=== PATIENT | male | born 1955 | race Hispanic/Latino ===

== ENCOUNTER 2019-05-01 12:00 | Emergency (ER) | payer MEDICARE, SELFPAY ==
[2019-05-01] VITALS (11 sets, daily range): BP systolic 124–173; BP diastolic 64–83; PULSE 61–78; RESP 11–21; TEMP 36.7; O2SAT 94–100; BMI 25.7
--- NOTE | 2019-05-01 13:07 | PC.NURSE ---
pt explains he passed out 3 times, woke on the floor 3 different times this am, then drove himself here. btoner
--- NOTE | 2019-05-01 13:59 | ED.SYNCOPE ---
HPI - Syncope General Chief Complaint: Chest Pain Stated Complaint: states 3 syncopal episodes,chest bothering him Time Seen by Provider: 05/01/19 13:42 Source: patient Mode of arrival: Ambulatory Limitations: no limitations History of Present Illness HPI narrative: The patient is a 63-year-old male who presents to the emergency department with chest pain after multiple episodes of syncope. At 2:00 a.m. in the morning the patient felt nauseated cannot of bed went to the bathroom passed out and woke up on the floor. He does not know how long he was out. The patient states that he went back to his bed and passed out again and woke up on the floor. This morning he was sitting on the toilet and passed out a 3rd time. He denies falling off the toilet at that time he woke up sitting on the toilet. He then developed chest pain which radiated into his right neck . He denies any radiation to his neck or his back. He has had no jaw pain. He has felt short of breath in air hungry as well as having palpitations. He has been dizzy and lightheaded. He denies being a diabetic but admits to history of hypertension and a previous myocardial infarction. He tells me that he has had [address] Elder a fusion juncture grinder says that he has had a stent in his LAD in the past. The patient continues to smoke cigarettes but does not drink alcohol. He denies any headache at this time. He has had mild shortness of breath without any cough. He has had no significant nausea vomiting diarrhea. His bowel movements have been normal without melena or hematochezia. He denies any urinary symptoms. Related Data Home Medications Medication Instructions Recorded Confirmed aspirin 325 mg PO QPM 05/01/19 05/01/19 carvedilol 6.25 mg PO BID 05/01/19 05/01/19 cholecalciferol (vitamin D3) 2,000 unit PO QPM 05/01/19 05/01/19 dicyclomine 10 mg PO QID PRN 05/01/19 05/01/19 duloxetine 20 mg PO QPM 05/01/19 05/01/19 erythromycin 250 mg PO QID PRN 05/01/19 05/01/19 gabapentin 400 mg PO TID 05/01/19 05/01/19 isosorbide mononitrate 30 mg PO QPM 05/01/19 05/01/19 levothyroxine 125 mcg PO QPM 05/01/19 05/01/19 lisinopril 5 mg PO QPM 05/01/19 05/01/19 metformin 500 mg PO BID 05/01/19 05/01/19 mupirocin 1 applic TOPICAL BID PRN 05/01/19 05/01/19 nitroglycerin 0.4 mg SUBLINGUAL Q5-15M PRN 05/01/19 05/01/19 pantoprazole 40 mg PO QPM 05/01/19 05/01/19 vitamin B complex [B-Complex] 1 tab PO QPM 05/01/19 05/01/19 Allergies Allergy/AdvReac Type Severity Reaction Status Date / Time gemfibrozil Allergy Verified 05/01/19 12:21 Review of Systems Review of Systems Narrative: All review of systems were negative except for those mentioned in the history of present illness. Patient History Social History Smoking Status: Current some day smoker Smoking Status: Current some day smoker alcohol intake frequency: holidays/special occasions only Substance Use Type: does not use Exam Narrative Exam Narrative: PHYSICAL EXAM: CONSTITUTIONAL: Awake, Alert, Oriented, Coherent, Cooperative in NAD. Does not appear toxic or ill. HEAD: AT/NC EENT: PERRL, FROM of eyes, no discharge, Oral mucosa is moist and pink, posterior pharynx is without erythema or exudate. The patient is edentulous NECK: Supple, no obvious JVD, Trachea is midline without stridor, . SPINE: No gross deformity, no palpable tenderness of the cervical, thoracic, lumbar or sacral spine. No CVA tenderness. THORAX: No deformity, retractions, chest wall tenderness, subcutaneous air or crepitice. LUNGS: Clear with symmetrical breath sounds without respiratory distress HEART: Normal heart tones, regular rhythm and rate without murmur. ABDOMEN: Soft, non-tender, normal bowel sounds without guarding, rebound, rigidity or palpable mass EXTREMITIES: No edema, cyanosis, deformity or tenderness. SKIN: No rash, bruising, petechiae or purpura. NEURO: Awake, alert, oriented, conversive, cranial nerves II-XII are symmetrical and normal, moves all 4 extremities and is ambulatory Initial Vital Signs Initial Vital Signs: Vital Signs Temperature 98.1 F 05/01/19 12:21 Pulse Rate 77 05/01/19 12:21 Respiratory Rate 15 05/01/19 12:21 Blood Pressure 143/78 H 05/01/19 12:21 Pulse Oximetry 100 05/01/19 12:21 Course Course Course Narrative: 1631 the patient has had multiple episodes of syncope with continued chest pain. He initially stated that nitropaste 1 in helped his pain for approximately 1 in in then it is came back. The patient will be started on a nitro drip and administered 4 mg of morphine sulfate. I will discuss the patient with his fusion juncture grinder Dr. Kenny at [facility] to arrange an admission for possible unstable angina and syncope. 1815 I discussed the patient with Dr. ELDER from [facility] in [facility] who recommended that the patient does not need immediate catheterization but should be admitted to the hospital for a rule out and a cardiac stress test. He recommends that we call the hospitalist and transfer him to [facility] in billing him. I discussed the EKG with Dr. Elder who stated that his EKG is unchanged from before. He was scheduled to have an appointment with their office 2 days ago which she canceled his last appointment was in October of last year. [address] Rosado at [facility] in [facility] who has accepted the patient being transferred to their institution The patient's urine drug screen was positive for marijuana, methamphetamine and Amphetamines Orders Ordered: ED Orders 05/01/19 12:25 Complete Blood Count AUTO DIFF Stat Comprehensive Metabolic Panel Stat Ethanol (ETOH) Stat Lipase Stat Magnesium Stat NT-proBNP (BNP-Adult 18+) Stat Troponin & CK Cardiac Panel Stat 05/01/19 14:00 XR chest 1V Stat 05/01/19 15:50 Urine Drug Screen, Rapid Stat 05/01/19 17:10 Troponin I Stat Discontinued Medications Aspirin (Aspirin Chew) 324 mg PO NOW ONE Stop: 05/01/19 14:03 Last Admin: 05/01/19 14:12 Dose: 324 mg Documented by: BTONER Sodium Chloride (Normal Saline 0.9%) 1,000 mls @ 1,000 mls/hr IV BOLUS ONE Stop: 05/01/19 14:58 Last Infusion: 05/01/19 15:40 Dose: 0 mls/hr Documented by: Admin: 05/01/19 14:11 Dose: 1,000 mls/hr Documented by: CONG Nitroglycerin (Nitroglycerin) 50 mg in 250 mls @ 1.5 mls/hr IV TITRATE SHARAD; Protocol Ketorolac Tromethamine (Toradol) 30 mg IV NOW ONE Stop: 05/01/19 14:03 Last Admin: 05/01/19 14:12 Dose: 30 mg Documented by: CONG Morphine Sulfate (Morphine Sulfate) 4 mg IV NOW ONE Stop: 05/01/19 16:33 Last Admin: 05/01/19 17:41 Dose: Not Given Documented by: ELYSE Morphine Sulfate (Morphine) 4 mg IV NOW ONE Stop: 05/01/19 17:19 Last Admin: 05/01/19 17:22 Dose: 4 mg Documented by: ABDIAS Nitroglycerin (Nitro-Bid) 1 inch TOP NOW ONE Stop: 05/01/19 14:03 Last Admin: 05/01/19 14:12 Dose: 1 inch Documented by: CONG Vital Signs Vital signs: Vital Signs - 8 hr 05/01/19 13:50 05/01/19 14:12 05/01/19 15:08 Pulse Rate 75 66 61 Pulse Rate [Orthostatic Lying] Pulse Rate [Orthostatic Sitting] Pulse Rate [Orthostatic Standing] Respiratory Rate 18 15 Blood Pressure 140/74 Blood Pressure [Left Arm] 148/77 H Blood Pressure [Orthostatic Lying] Blood Pressure [Orthostatic Sitting] Blood Pressure [Orthostatic Standing] Blood Pressure [Right Arm] 124/69 Pulse Oximetry 97 98 05/01/19 16:02 05/01/19 17:52 05/01/19 18:30 Pulse Rate 62 65 Pulse Rate [Orthostatic Lying] 75 Pulse Rate [Orthostatic Sitting] 78 Pulse Rate [Orthostatic Standing] 72 Respiratory Rate 15 14 Blood Pressure Blood Pressure [Left Arm] Blood Pressure [Orthostatic Lying] 128/73 Blood Pressure [Orthostatic Sitting] 148/67 H Blood Pressure [Orthostatic Standing] 137/74 Blood Pressure [Right Arm] 173/83 H 159/75 H Pulse Oximetry 98 98 05/01/19 19:05 05/01/19 19:39 05/01/19 20:07 Pulse Rate 69 76 66 Pulse Rate [Orthostatic Lying] Pulse Rate [Orthostatic Sitting] Pulse Rate [Orthostatic Standing] Respiratory Rate 17 21 12 Blood Pressure Blood Pressure [Left Arm] 135/66 135/66 Blood Pressure [Orthostatic Lying] Blood Pressure [Orthostatic Sitting] Blood Pressure [Orthostatic Standing] Blood Pressure [Right Arm] 138/64 Pulse Oximetry 97 98 97 MDM - Syncope Medical Records Attestation: I reviewed the patient's medical records. Lab Data Attestation: I reviewed the patient's lab results. Result diagrams: 05/01/19 12:25 05/01/19 12:25 Labs: Lab Results 05/01/19 05/01/19 05/01/19 Range/Units 12:25 12:25 12:25 WBC 9.4 (4.5-11.0) X10^3/uL RBC 5.63 (4.5-5.9) X10^6/uL Hgb 16.6 (13.5-17.5) g/dL Hct 48.4 (41-53) % MCV 86.0 (80-100) fL MCH 29.4 (26-34) PG MCHC 34.2 (30-36) % RDW 13.9 (11.6-14.8) % Plt Count 379 (150-400) X10^3/uL Neut % (Auto) 69.0 (50-75) % Lymph % (Auto) 18.4 L (25-40) % [place] % (Auto) 7.0 (3-14) % Eos % (Auto) 4.5 H (2-4) % Baso % (Auto) 1.1 (0-2) % Neut # (Auto) 6500 (6671-9442) /uL Lymph # (Auto) 1700 (7296-3027) /uL [place] # (Auto) 700 (0-900) /uL Eos # (Auto) 400 (0-450) /uL Baso # (Auto) 100 (0-100) /uL Sodium 136 L (137-145) mmol/L Potassium 4.0 (3.4-5.1) mmol/L Chloride 97 L (98-107) mmol/L Carbon Dioxide 29 (22-32) mmol/L BUN 14 (9-20) mg/dL Creatinine 1.20 (0.66-1.25) mg/dL Estimated GFR > 60.0 (>60) mL/min BUN/Creatinine Ratio 11.7 (6-22) Glucose 142 H (80-110) mg/dL Calcium 10.2 (8.4-10.2) mg/dL Magnesium 2.1 (1.6-2.3) mg/dL Total Bilirubin 0.6 (0.2-1.3) mg/dL AST 28 (17-59) IU/L ALT 18 (<50) IU/L Alkaline Phosphatase 83 (38-126) U/L Total Creatine Kinase 96 (55-170) U/L CK-MB (CK-2) TNP CK-MB (CK-2) Rel Index TNP Troponin I < 0.012 (0.01-0.034) ng/mL NT-Pro-B Natriuret Pep 161 H (<125) pg/mL Total Protein 8.0 (6.3-8.2) g/dL Albumin 4.5 (3.5-5.0) g/dL Globulin 3.5 (1.7-4.1) g/dL Albumin/Globulin Ratio 1.3 (1.0-2.8) Lipase 78 (23-300) U/L U Opiates 300ng/mL cut (Negative) Ur Oxycodone Screen (Negative) Urine Methadone Screen (Negative) Ur Barbiturates Screen (Negative) U Tricyclic Antidepress (Negative) Ur Phencyclidine Scrn (Negative) Ur Amphetamines Screen (Negative) U Methamphetamines Scrn (Negative) Ur MDMA Scrn (Ecstasy) (Negative) U Benzodiazepines Scrn (Negative) Urine Cocaine Screen (Negative) U Marijuana (THC) Screen (Negative) Ethyl Alcohol < 10 ( - 10) mg/dL 05/01/19 05/01/19 Range/Units 15:50 17:10 WBC (4.5-11.0) X10^3/uL RBC (4.5-5.9) X10^6/uL Hgb (13.5-17.5) g/dL Hct (41-53) % MCV (80-100) fL MCH (26-34) PG MCHC (30-36) % RDW (11.6-14.8) % Plt Count (150-400) X10^3/uL Neut % (Auto) (50-75) % Lymph % (Auto) (25-40) % [place] % (Auto) (3-14) % Eos % (Auto) (2-4) % Baso % (Auto) (0-2) % Neut # (Auto) (2263-5831) /uL Lymph # (Auto) (7055-7276) /uL [place] # (Auto) (0-900) /uL Eos # (Auto) (0-450) /uL Baso # (Auto) (0-100) /uL Sodium (137-145) mmol/L Potassium (3.4-5.1) mmol/L Chloride (98-107) mmol/L Carbon Dioxide (22-32) mmol/L BUN (9-20) mg/dL Creatinine (0.66-1.25) mg/dL Estimated GFR (>60) mL/min BUN/Creatinine Ratio (6-22) Glucose (80-110) mg/dL Calcium (8.4-10.2) mg/dL Magnesium (1.6-2.3) mg/dL Total Bilirubin (0.2-1.3) mg/dL AST (17-59) IU/L ALT (<50) IU/L Alkaline Phosphatase (38-126) U/L Total Creatine Kinase (55-170) U/L CK-MB (CK-2) CK-MB (CK-2) Rel Index Troponin I < 0.012 (0.01-0.034) ng/mL NT-Pro-B Natriuret Pep (<125) pg/mL Total Protein (6.3-8.2) g/dL Albumin (3.5-5.0) g/dL Globulin (1.7-4.1) g/dL Albumin/Globulin Ratio (1.0-2.8) Lipase (23-300) U/L U Opiates 300ng/mL cut Negative (Negative) Ur Oxycodone Screen Negative (Negative) Urine Methadone Screen Negative (Negative) Ur Barbiturates Screen Negative (Negative) U Tricyclic Antidepress Negative (Negative) Ur Phencyclidine Scrn Negative (Negative) Ur Amphetamines Screen Positive H (Negative) U Methamphetamines Scrn Positive H (Negative) Ur MDMA Scrn (Ecstasy) Negative (Negative) U Benzodiazepines Scrn Negative (Negative) Urine Cocaine Screen Negative (Negative) U Marijuana (THC) Screen Positive H (Negative) Ethyl Alcohol ( - 10) mg/dL Urine Dip Bedside Urine Glucose Negative Bedside Urine Bilirubin - Negative Bedside Urine Ketone - Negative Urine Specific [place] 1.015 Bedside Urine Occult Blood - Negative Bedside Urine pH 6.0 Bedside Urine Protein - Negative Bedside Urine Urobilinogen - Negative Bedside Urine Nitrite - Negative Bedside Urine Leukocytes - Negative Esterase ECG Data Attestation: I personally reviewed and interpreted this ECG as follows: Interpretation: The patient's EKG reveals a sinus rhythm with a ventricular rate of 73. The QRS is prolonged at 133 milliseconds. The QTC is normal. [place] is left axis deviation. The patient has a Q-wave in lead III and AVF as well as II suggesting the possibility of an old inferior wall infarct. He also has left ventricular hypertrophy and nonspecific ST segment elevations in the lateral leads. The EKG was obtained at 12:1 3:47 a.m.: Discharge Plan Departure Patient Disposition: [facility] Clinical Impression: Syncope and collapse, Chest pressure, Angina pectoris, Methamphetamine abuse Prescriptions: No Action metformin 500 mg Tablet 500 mg PO BID RF: 0 carvedilol 6.25 mg Tablet 6.25 mg PO BID RF: 0 aspirin 325 mg Tablet 325 mg PO QPM RF: 0 isosorbide mononitrate 30 mg Tablet Extended Release 24 Hr 30 mg PO QPM RF: 0 erythromycin 250 mg Tablet 250 mg PO QID PRN (Reason: gastroparesis) RF: 0 pantoprazole 40 mg Tablet,Delayed Release (Dr/Ec) 40 mg PO QPM RF: 0 levothyroxine 125 mcg Tablet 125 mcg PO QPM RF: 0 nitroglycerin 0.4 mg Tablet, Sublingual 0.4 mg SUBLINGUAL Q5-15M PRN (Reason: Chest Pain) RF: 0 vitamin B complex [B-Complex] Tablet 1 tab PO QPM RF: 0 lisinopril 5 mg Tablet 5 mg PO QPM RF: 0 mupirocin 2 % Ointment 1 applic TOPICAL BID PRN (Reason: Rash) RF: 0 gabapentin 100 mg Capsule 400 mg PO TID RF: 0 dicyclomine 10 mg Capsule 10 mg PO QID PRN (Reason: abd pain) RF: 0 duloxetine 20 mg Capsule,Delayed Release(Dr/Ec) 20 mg PO QPM RF: 0 cholecalciferol (vitamin D3) 2,000 unit Tablet 2,000 unit PO QPM RF: 0
--- NOTE | 2019-05-01 14:00 | DI.RAD.S_ITS ---
PROCEDURE: XR CHEST 1V INDICATIONS: syncope/ chest pain TECHNIQUE: One view of the chest was acquired. COMPARISON: None. FINDINGS: Surgical changes and devices: Surgical clips projecting in the right base of neck. Lungs and pleura: Lungs are clear. No pleural effusions or pneumothorax. Mediastinum: Mediastinal contours appear normal. Heart size is normal. Bones and chest wall: No suspicious bony lesions. Overlying soft tissues appear unremarkable. IMPRESSION: No acute disease. Dictated by: Joel Hernandez M.D. on 05/01/2019 at 14:37 Approved by: Joel Hernandez M.D. on 05/01/2019 at 14:38
[2019-05-01 14:08] LABS: Add Manual Diff / Slide Review NO; Basophils Absolute Auto 100 /uL (0-100); Basophils Percent Auto 1.1 % (0-2); Eosinophils Absolute Auto 400 /uL (0-450); Eosinophils Percent Auto 4.5 % (2-4); Hematocrit 48.4 % (41-53); Hemoglobin 16.6 g/dL (13.5-17.5); Lymphocytes Absolute Auto 1700 /uL (1100-4500); Lymphocytes Percent Auto 18.4 % (25-40); Mean Corpuscular HGB Conc 34.2 % (30-36); Mean Corpuscular Hemoglobin 29.4 PG (26-34); Monocytes Absolute Auto 700 /uL (0-900); Neutrophils Absolute Auto 6500 /uL (1500-7000); Platelet Count 379 X10^3/uL (150-400); Red Blood Cell Count 5.63 X10^6/uL (4.5-5.9); Red Cell Distribution Width 13.9 % (11.6-14.8); White Blood Cell Count 9.4 X10^3/uL (4.5-11.0)
[2019-05-01] MEDS: SODIUM CHLORIDE 0.9% 1,000 ML 1000 ML IV (14:11)
[2019-05-01] MEDS: KETOROLAC 60 MG/2 ML VIAL 30 MG IV (14:12)
[2019-05-01] MEDS: NITROGLYCERIN OINT 1 INCH/GM OINT...G. TOP (14:12)
[2019-05-01] MEDS: ASPIRIN 81 MG CHEW TAB 324 MG PO (14:12)
[2019-05-01 14:15] LABS: Alanine Aminotransferase 18 IU/L (<50); Albumin 4.5 g/dL (3.5-5.0); Albumin Globulin Ratio 1.3 (1.0-2.8); Alkaline Phosphatase 83 U/L (38-126); Aspartate Aminotransferase 28 IU/L (17-59); BUN Creatinine Ratio 11.7 (6-22); Bilirubin Total 0.6 mg/dL (0.2-1.3); Blood Urea Nitrogen 14 mg/dL (9-20); Calcium 10.2 mg/dL (8.4-10.2); Carbon Dioxide 29 mmol/L (22-32); Chloride 97 mmol/L (98-107); Creatine Kinase 96 U/L (55-170); Estimated Glomerular Filt Rate > 60.0 mL/min (>60); Globulin 3.5 g/dL (1.7-4.1); Glucose 142 mg/dL (80-110); HEMOLYSIS < 15 (0-50); Sodium 136 mmol/L (137-145)
[2019-05-01 14:19] LABS: Ethanol (ETOH) < 10 mg/dL; Lipase 78 U/L (23-300); Magnesium 2.1 mg/dL (1.6-2.3)
[2019-05-01 14:26] LABS: Troponin I < 0.012 ng/mL (0.01-0.034)
[2019-05-01 15:39] LABS: NT-proBNP (BNP-Adult 18+) 161 pg/mL (<125)
--- NOTE | 2019-05-01 15:57 | PC.NURSE ---
pt c/o of chest pain worsening, report to dr. patterson. btoner
[2019-05-01 16:03] LABS: Ur Creatinine Normal (Normal); Ur Specific Gravity Normal (Normal); Urine Tetrahydrocannabinol Positive (Negative); Urine pH Normal (Normal)
[2019-05-01 16:04] LABS: UR Morphine/Opiate cutoff 300 Negative (Negative); Urine Amphetamines Positive (Negative); Urine Barbiturates Negative (Negative); Urine Benzodiazepines Negative (Negative); Urine Cocaine Negative (Negative); Urine MDMA Negative (Negative); Urine Methadone Negative (Negative); Urine Methamphetamines Positive (Negative); Urine Oxycodone Negative (Negative); Urine Phencyclidine Negative (Negative); Urine Tricyclic Antidepressant Negative (Negative)
[2019-05-01] MEDS: MORPHINE 4 MG/ML INJ IV (17:22)
--- NOTE | 2019-05-01 17:24 | PC.NURSE ---
rec'd orders due to chest pain. btoner
--- NOTE | 2019-05-01 17:56 | PC.NURSE ---
Medications reconciled. Pt takes all daily meds at night @ 2200. States he has not taken anything today.
[2019-05-01 18:06] LABS: Troponin I < 0.012 ng/mL (0.01-0.034)
== END 2019-05-01 20:09 | disposition short-term general hospital (02) ==
PROVIDERS: Emergency Provider Emergency Medicine
DX: I20.9 Angina pectoris, unspecified (principal); F15.10 Other stimulant abuse, uncomplicated; R55 Syncope and collapse; R07.89 Other chest pain
CPT/HCPCS: 36415; 71045; 80053; 80305; 80320; 81003; 82550; 83690; 83735; 83880; 84484; 85025; 93005; 96361; 96374; 96375; 99285; J1885; J2270

== ENCOUNTER 2019-05-23 06:31 | Emergency (ER) | payer MEDICARE, SELFPAY ==
[2019-05-23] VITALS (9 sets, daily range): BP systolic 90–139; BP diastolic 56–80; PULSE 89–115; RESP 16–20; O2SAT 95–100
--- NOTE | 2019-05-23 06:32 | DI.RAD.S_ITS ---
PROCEDURE: XR CHEST 1V INDICATIONS: chest pain TECHNIQUE: One view of the chest was acquired. COMPARISON: [facility], CR, XR CHEST 1V, 05/01/2019, 14:12. FINDINGS: Surgical changes and devices: Surgical clips in the right base the neck are stable.. Lungs and pleura: Lungs are clear. No pleural effusions or pneumothorax. Mediastinum: Mediastinal contours appear normal. Heart size is normal. Bones and chest wall: No suspicious bony lesions. Overlying soft tissues appear unremarkable. IMPRESSION: No acute cardiopulmonary disease process. Dictated by: Peral Castillo MD, PhD on 05/23/2019 at 8:20 Approved by: Perla Castillo MD, PhD on 05/23/2019 at 8:20
[2019-05-23 06:50] LABS: Add Manual Diff / Slide Review NO; Basophils Absolute Auto 0 /uL (0-100); Basophils Percent Auto 0.2 % (0-2); Eosinophils Absolute Auto 100 /uL (0-450); Eosinophils Percent Auto 0.6 % (2-4); Hematocrit 45.7 % (41-53); Hemoglobin 16.1 g/dL (13.5-17.5); Lymphocytes Absolute Auto 300 /uL (1100-4500); Lymphocytes Percent Auto 2.9 % (25-40); Mean Corpuscular HGB Conc 35.2 % (30-36); Mean Corpuscular Volume 85.3 fL (80-100); Monocytes Absolute Auto 400 /uL (0-900); Neutrophils Absolute Auto 8600 /uL (1500-7000); Neutrophils Percent Auto 92.3 % (50-75); Platelet Count 357 X10^3/uL (150-400); Red Blood Cell Count 5.36 X10^6/uL (4.5-5.9); Red Cell Distribution Width 13.6 % (11.6-14.8); White Blood Cell Count 9.3 X10^3/uL (4.5-11.0)
--- NOTE | 2019-05-23 06:52 | ED_ITS ---
HPI - Chest Pain <Sean DO Cristian - Last Filed: 05/24/19 17:25> General Chief Complaint: Chest Pain Stated Complaint: chest pain/pressure/nausea/high bp Time Seen by Provider: 05/23/19 06:32 Source: patient Mode of arrival: Ambulatory Limitations: no limitations History of Present Illness HPI narrative: 63-year-old male smoker with history of hypertension, hyperlipidemia and extensive cardiac history presents with a chief complaint of 9/10 anterior chest pressure which woke him from sleep just prior to arrival. He denies any provocation or palliation nor radiation. He took all of his morning meds including aspirin and Plavix as well as 1 nitro which did nothing to resolved symptoms. He denies exertional provocation. Associated symptoms include dizziness, lightheadedness, diaphoresis and shortness of Breath. He states this feels similar to prior cardiac events. He has had 9 stents, most recently 2 weeks ago [facility] in [place]. He denies any recent travel or injury. He denies fever, chills nor vomiting or diarrhea. At its most intense his pain was a 9/10. MD complaint: chest pain Onset (ago): hour(s) Duration: improved Onset: during rest Pain location: substernal Severity: moderate Quality: tightness and heaviness Pain radiation: none Relieving factors: nothing Exacerbating factors: nothing Associated symptoms: nausea, diaphoresis and dyspnea Treatments prior to arrival chest pain: aspirin and nitroglycerin Related Data Home Medications Medication Instructions Recorded Confirmed aspirin 325 mg PO QPM 05/01/19 05/01/19 carvedilol 6.25 mg PO BID 05/01/19 05/01/19 cholecalciferol (vitamin D3) 2,000 unit PO QPM 05/01/19 05/01/19 dicyclomine 10 mg PO QID PRN 05/01/19 05/01/19 duloxetine 20 mg PO QPM 05/01/19 05/01/19 erythromycin 250 mg PO QID PRN 05/01/19 05/01/19 gabapentin 400 mg PO TID 05/01/19 05/01/19 isosorbide mononitrate 30 mg PO QPM 05/01/19 05/01/19 levothyroxine 125 mcg PO QPM 05/01/19 05/01/19 lisinopril 5 mg PO QPM 05/01/19 05/01/19 metformin 500 mg PO BID 05/01/19 05/01/19 mupirocin 1 applic TOPICAL BID PRN 05/01/19 05/01/19 nitroglycerin 0.4 mg SUBLINGUAL Q5-15M PRN 05/01/19 05/01/19 pantoprazole 40 mg PO QPM 05/01/19 05/01/19 vitamin B complex [B-Complex] 1 tab PO QPM 05/01/19 05/01/19 Allergies Allergy/AdvReac Type Severity Reaction Status Date / Time gemfibrozil Allergy Verified 05/01/19 12:21 Review of Systems <Sean Foster, DO - Last Filed: 05/24/19 17:25> Constitutional Constitutional: Denies chills, Denies fatigue, Denies fever(s), Denies frequent falls, Denies lethargy and Denies weakness Eyes Eyes: Denies change in vision, Denies eye discharge, Denies irritation and Denies loss of vision ENT Ears, Nose, Mouth, and Throat: Denies change in voice, Denies dizziness, Denies neck pain, Denies sore throat and Denies throat swelling Cardiovascular Cardiovascular: Reports chest pain, Denies irregular heart rhythm, Denies lightheadedness, Reports palpitations, Reports dyspnea, Denies dyspnea on exertion and Denies orthopnea Respiratory Respiratory: Denies cough, Reports dyspnea, Denies dyspnea on exertion and Denies wheezing Gastrointestinal Gastrointestinal: Denies abdominal pain, Denies change in bowel habits, Denies diarrhea, Denies nausea and Denies vomiting Genitourinary Genitourinary: Denies hematuria, Denies flank pain, Denies urinary incontinence and Denies urinary urgency Musculoskeletal Musculoskeletal: Denies back pain, Denies muscle weakness, Denies neck pain, Denies numbness and Denies tingling Integumentary/Breasts Skin/Breast: Denies pruritus, Denies erythema, Denies rash and Denies wounds Neurologic Neurologic: Denies behavioral changes, Denies confusion, Denies dizziness, Denies frequent falls, Denies loss of vision, Denies numbness, Denies tingling and Denies weakness Psychiatric Psychiatric: Denies anxiety, Denies behavioral changes, Denies confusion, Denies depression, Denies homicidal ideation and Denies suicidal ideation Endocrine Endocrine: Denies fatigue, Denies flushing and Reports palpitations Hematologic/Lymphatic Hematologic/Lymphatic: Denies easy bruising Allergic/Immunologic Allergic/Immunologic: Denies urticaria, Denies throat swelling and Denies wheezing Patient History <Sean Foster DO - Last Filed: 05/24/19 17:25> Social History Smoking Status: Current some day smoker Smoking Status: Current some day smoker alcohol intake frequency: holidays/special occasions only Substance Use Type: does not use Exam <Sean Foster DO - Last Filed: 05/24/19 17:25> Narrative Exam Narrative: GENERAL: [63] year old patient appears stated age. Well- nourished, well-developed patient, in moderate distress, anxious HEAD: Atraumatic. Normocephalic. EYES: Pupils equal round and reactive. Extraocular motions intact. No scleral icterus. No injection or drainage. ENT: Nose without bleeding, purulent drainage. Throat without erythema, tonsillar hypertrophy or exudate. Airway patent. NECK: Trachea midline. Non tender CARDIOVASCULAR: Tachycardic but regular rhythm without murmurs, gallops, or rubs. RESPIRATORY: Clear to auscultation. Breath sounds equal bilaterally. No wheezes, rales, or rhonchi. GASTROINTESTINAL: Abdomen soft, non-tender, nondistended. EXTREMITIES: No edema or joint tenderness. BACK: Nontender without deformity or crepitance. No flank tenderness. NEURO: AOx3. SKIN: No rash or erythema of visible areas Initial Vital Signs Initial Vital Signs: Vital Signs Pulse Rate 105 H 05/23/19 06:37 Respiratory Rate 05/23/19 06:37 Blood Pressure 139/80 05/23/19 06:37 Pulse Oximetry 100 05/23/19 06:37 <Veronika Hernández MD - Last Filed: 05/23/19 19:13> Initial Vital Signs Initial Vital Signs: Vital Signs Pulse Rate 105 H 05/23/19 06:37 Respiratory Rate 05/23/19 06:37 Blood Pressure 139/80 05/23/19 06:37 Pulse Oximetry 100 05/23/19 06:37 Course <Sean Foster DO - Last Filed: 05/24/19 17:25> Orders Ordered: Discontinued Medications Aspirin (Aspirin Chew) 324 mg PO NOW ONE Stop: 05/23/19 06:33 Last Admin: 05/23/19 06:49 Dose: Not Given Documented by: TYLER Heparin Sodium (Porcine) (Heparin) 5,000 unit IV NOW ONE Stop: 05/23/19 07:50 Last Admin: 05/23/19 08:00 Dose: 4,000 unit Documented by: CHITO Sodium Chloride (Normal Saline 0.9%) 1,000 mls @ 150 mls/hr IV CONT SHARAD Last Infusion: 05/23/19 08:03 Dose: 0 mls/hr Documented by: Infusion: 05/23/19 08:03 Dose: 0 mls/hr Documented by: Admin: 05/23/19 06:54 Dose: 150 mls/hr Documented by: KRYSTINA Heparin Sodium/Dextrose (Heparin Drip) 25,000 unit in 500 mls @ 20 mls/hr IV CONT SHARAD; Protocol Last Titration: 05/23/19 08:10 Dose: 1,000 units/hr, 20 mls/hr Documented by: Admin: 05/23/19 08:02 Dose: 1,000 units/hr, 20 mls/hr Documented by: CHITO Metoprolol Tartrate (Lopressor) 5 mg IV Q5M SHARAD Stop: 05/23/19 07:41 Last Admin: 05/23/19 08:24 Dose: Not Given Documented by: Admin: 05/23/19 08:24 Dose: Not Given Documented by: Admin: 05/23/19 07:35 Dose: 5 mg Documented by: CHITO Morphine Sulfate (Morphine) 2 mg IV Q5MIN PRN PRN Reason: Chest Pain Last Admin: 05/23/19 07:52 Dose: 2 mg Documented by: CHITO Nitroglycerin (Nitrostat) 0.4 mg SL [id number] PRN PRN Reason: Chest Pain Last Admin: 05/23/19 07:07 Dose: 0.4 mg Documented by: Admin: 05/23/19 07:01 Dose: 0.4 mg Documented by: Admin: 05/23/19 06:55 Dose: 0.4 mg Documented by: KRYSTINA Ondansetron HCl (Zofran) 4 mg IV NOW ONE Stop: 05/23/19 06:58 Last Admin: 05/23/19 07:04 Dose: 4 mg Documented by: KRYSTINA Vital Signs Vital signs: Vital Signs - 8 hr 05/23/19 06:37 05/23/19 06:55 05/23/19 07:01 Pulse Rate 105 H 105 H 113 H Respiratory Rate 20 Blood Pressure 139/80 139/80 116/59 L Blood Pressure [Right Arm] Pulse Oximetry 100 05/23/19 07:07 05/23/19 07:10 05/23/19 07:41 Pulse Rate 113 H 115 H 103 H Respiratory Rate 17 16 Blood Pressure 113/63 Blood Pressure [Right Arm] 113/56 L 113/60 Pulse Oximetry 95 96 05/23/19 07:51 05/23/19 08:02 Pulse Rate 89 Respiratory Rate 17 Blood Pressure 115/60 Blood Pressure [Right Arm] 117/60 Pulse Oximetry 96 <Veronika Hernández MD - Last Filed: 05/23/19 19:13> Orders Ordered: Discontinued Medications Aspirin (Aspirin Chew) 324 mg PO NOW ONE Stop: 05/23/19 06:33 Last Admin: 05/23/19 06:49 Dose: Not Given Documented by: TYLER Heparin Sodium (Porcine) (Heparin) 5,000 unit IV NOW ONE Stop: 05/23/19 07:50 Last Admin: 05/23/19 08:00 Dose: 4,000 unit Documented by: CHITO Sodium Chloride (Normal Saline 0.9%) 1,000 mls @ 150 mls/hr IV CONT [facility] Last Infusion: 05/23/19 08:03 Dose: 0 mls/hr Documented by: Infusion: 05/23/19 08:03 Dose: 0 mls/hr Documented by: Admin: 05/23/19 06:54 Dose: 150 mls/hr Documented by: KRYSTINA Heparin Sodium/Dextrose (Heparin Drip) 25,000 unit in 500 mls @ 20 mls/hr IV CONT SHARAD; Protocol Last Titration: 05/23/19 08:10 Dose: 1,000 units/hr, 20 mls/hr Documented by: Admin: 05/23/19 08:02 Dose: 1,000 units/hr, 20 mls/hr Documented by: CHITO Metoprolol Tartrate (Lopressor) 5 mg IV Q5M SHARAD Stop: 05/23/19 07:41 Last Admin: 05/23/19 08:24 Dose: Not Given Documented by: Admin: 05/23/19 08:24 Dose: Not Given Documented by: Admin: 05/23/19 07:35 Dose: 5 mg Documented by: CHITO Morphine Sulfate (Morphine) 2 mg IV Q5MIN PRN PRN Reason: Chest Pain Last Admin: 05/23/19 07:52 Dose: 2 mg Documented by: CHITO Nitroglycerin (Nitrostat) 0.4 mg SL [id number] PRN PRN Reason: Chest Pain Last Admin: 05/23/19 07:07 Dose: 0.4 mg Documented by: Admin: 05/23/19 07:01 Dose: 0.4 mg Documented by: Admin: 05/23/19 06:55 Dose: 0.4 mg Documented by: KRYSTINA Ondansetron HCl (Zofran) 4 mg IV NOW ONE Stop: 05/23/19 06:58 Last Admin: 05/23/19 07:04 Dose: 4 mg Documented by: KRYSTINA Vital Signs Vital signs: Vital Signs - 8 hr 05/23/19 06:37 05/23/19 06:55 05/23/19 07:01 Pulse Rate 105 H 105 H 113 H Respiratory Rate 20 Blood Pressure 139/80 139/80 116/59 L Blood Pressure [Right Arm] Pulse Oximetry 100 05/23/19 07:07 05/23/19 07:10 05/23/19 07:41 Pulse Rate 113 H 115 H 103 H Respiratory Rate 17 16 Blood Pressure 113/63 Blood Pressure [Right Arm] 113/56 L 113/60 Pulse Oximetry 95 96 05/23/19 07:51 05/23/19 08:02 Pulse Rate 89 Respiratory Rate 17 Blood Pressure 115/60 Blood Pressure [Right Arm] 117/60 Pulse Oximetry 96 MDM - Chest Pain <Sean Foster DO - Last Filed: 05/24/19 17:25> Lab Data Result diagrams: 05/23/19 06:45 05/23/19 06:45 Labs: Lab Results 05/23/19 05/23/19 Range/Units 06:45 06:45 WBC 9.3 (4.5-11.0) X10^3/uL RBC 5.36 (4.5-5.9) X10^6/uL Hgb 16.1 (13.5-17.5) g/dL Hct 45.7 (41-53) % MCV 85.3 (80-100) fL MCH 30.0 (26-34) PG MCHC 35.2 (30-36) % RDW 13.6 (11.6-14.8) % Plt Count 357 (150-400) X10^3/uL Neut % (Auto) 92.3 H (50-75) % Lymph % (Auto) 2.9 L (25-40) % [place] % (Auto) 4.0 (3-14) % Eos % (Auto) 0.6 L (2-4) % Baso % (Auto) 0.2 (0-2) % Neut # (Auto) 8600 H (7160-1310) /uL Lymph # (Auto) 300 L (3454-5621) /uL [place] # (Auto) 400 (0-900) /uL Eos # (Auto) 100 (0-450) /uL Baso # (Auto) 0 (0-100) /uL Sodium 133 L (137-145) mmol/L Potassium 4.0 (3.4-5.1) mmol/L Chloride 96 L (98-107) mmol/L Carbon Dioxide 26 (22-32) mmol/L BUN 15 (9-20) mg/dL Creatinine 0.90 (0.66-1.25) mg/dL Estimated GFR > 60.0 (>60) mL/min BUN/Creatinine Ratio 16.7 (6-22) Glucose 120 H (80-110) mg/dL Calcium 9.5 (8.4-10.2) mg/dL Total Bilirubin 0.7 (0.2-1.3) mg/dL AST 27 (17-59) IU/L ALT 18 (<50) IU/L Alkaline Phosphatase 80 (38-126) U/L Total Creatine Kinase 32 L (55-170) U/L CK-MB (CK-2) TNP CK-MB (CK-2) Rel Index TNP Troponin I < 0.012 (0.01-0.034) ng/mL Total Protein 8.0 (6.3-8.2) g/dL Albumin 4.7 (3.5-5.0) g/dL Globulin 3.3 (1.7-4.1) g/dL Albumin/Globulin Ratio 1.4 (1.0-2.8) Lipase 154 (23-300) U/L ECG Data Attestation: I personally reviewed and interpreted this ECG as follows: Prior ECG tracings: available for review Interpretation: EKG is sinus tachycardia rate [103] occasional PVCs. No ST segmental elevation or depression. No T wave inversions <Veronika Hernández MD - Last Filed: 05/23/19 19:13> Medical Records Data Attestation: I reviewed the patient's medical records. Lab Data Attestation: I reviewed the patient's lab results. Lab results narrative: Initial troponin drawn 20 minutes after chest pain started is negative Labs: Lab Results 05/23/19 05/23/19 Range/Units 06:45 06:45 WBC 9.3 (4.5-11.0) X10^3/uL RBC 5.36 (4.5-5.9) X10^6/uL Hgb 16.1 (13.5-17.5) g/dL Hct 45.7 (41-53) % MCV 85.3 (80-100) fL MCH 30.0 (26-34) PG MCHC 35.2 (30-36) % RDW 13.6 (11.6-14.8) % Plt Count 357 (150-400) X10^3/uL Neut % (Auto) 92.3 H (50-75) % Lymph % (Auto) 2.9 L (25-40) % [place] % (Auto) 4.0 (3-14) % Eos % (Auto) 0.6 L (2-4) % Baso % (Auto) 0.2 (0-2) % Neut # (Auto) 8600 H (0714-9332) /uL Lymph # (Auto) 300 L (8324-2050) /uL [place] # (Auto) 400 (0-900) /uL Eos # (Auto) 100 (0-450) /uL Baso # (Auto) 0 (0-100) /uL Sodium 133 L (137-145) mmol/L Potassium 4.0 (3.4-5.1) mmol/L Chloride 96 L (98-107) mmol/L Carbon Dioxide 26 (22-32) mmol/L BUN 15 (9-20) mg/dL Creatinine 0.90 (0.66-1.25) mg/dL Estimated GFR > 60.0 (>60) mL/min BUN/Creatinine Ratio 16.7 (6-22) Glucose 120 H (80-110) mg/dL Calcium 9.5 (8.4-10.2) mg/dL Total Bilirubin 0.7 (0.2-1.3) mg/dL AST 27 (17-59) IU/L ALT 18 (<50) IU/L Alkaline Phosphatase 80 (38-126) U/L Total Creatine Kinase 32 L (55-170) U/L CK-MB (CK-2) TNP CK-MB (CK-2) Rel Index TNP Troponin I < 0.012 (0.01-0.034) ng/mL Total Protein 8.0 (6.3-8.2) g/dL Albumin 4.7 (3.5-5.0) g/dL Globulin 3.3 (1.7-4.1) g/dL Albumin/Globulin Ratio 1.4 (1.0-2.8) Lipase 154 (23-300) U/L ECG Data Attestation: I personally reviewed and interpreted this ECG as follows: Interpretation: #1. 6:42 Ventricular rate of 103 occasional PVCs Question of ST elevation leads V1 V2 V3, II, III verses a J-point elevation verses baseline, this is similar to many of his prior EKGs. Not meeting STEMI criteria but concern is raised EKG #2. 7:06 sinus tach at a rate of 112 question of atrial flutter. Unchanged ST segments EKG #3 7:17 sinus tach at a rate of 112, increase concern for atrial flutter. Similar ST changes EKG #4: 7:47 done for increasing pain. Normal sinus rhythm at a rate of 89 now with clearly involved ST segment changes in the 1 2 and 3 meeting STEMI criteria. STEMI protocols activated immediately MDM Narrative Medical decision making narrative: 63-year-old gentleman with multiple stents and extensive cardiovascular history. Most recent LAD stent placed May 12 at [facility] in [place]. Presents with chest pain starting again this morning. Pain woke him from sleep at 6:20 a.m.. He states that even with his ?big heart attacks? he does not get diaphoretic or nauseated. He does get mildly dyspneic. His complaining of midsternal chest tightness that similar to all of his previous MIs. Is having a bit of nausea this morning. His renal initial EKG on arrival suggested slight ST elevation in V1 and V2 a question of early elevation in II and III. These were very similar to all of his prior EKGs. Initially was concerned that he was actually in a 2-1 flutter rate control due to his beta-tarun. He was given nitro with minimal effect. Repeat EKGs did n ot show significant worsening by 7:17. A trial of 6 mg of adenosine was given to see if this was an a flutter. It is not. Is in not. The adenosine did not influence is pain in any way. Continues to be 8/10. Metoprolol IV is given for rate control, rate down to 89, continued 8/10 pain. By 7:44 pain is increasing. Morphine is ordered an EKG is repeated. Now showing clear changed ST elevation in V V1 through V3, the area of previous concerned recent stent location. STEMI protocol was activated. Patient will go to [facility]. 911 is called. Heparin is started. Nitro drip is added. Patient is stable at time of transfer speaking, calm, not diaphoretic. Vital signs are currently stable he continues to have pain he has got his 1st dose of morphine. Records are included with transport. <Veronika Hernández MD - Last Filed: 05/23/19 19:13> Critical Care Time Critical Care Time: Yes Total Critical Care Time: 38 Attestation: Critical Care Time [38] minutes: Critical care time is separate from other billable procedures. This critical care time includes consultation with family and other consulting doctors, review of records, and interpretation of data from labs, EKGs and imaging as well as managements of acute arrhythmia, chest pain, STEMI Discharge Plan Departure Patient Disposition: [facility] Clinical Impression: STEMI (ST elevation myocardial infarction) Discharge Date/Time: 05/23/19 08:00 Prescriptions: No Action metformin 500 mg Tablet 500 mg PO BID RF: 0 carvedilol 6.25 mg Tablet 6.25 mg PO BID RF: 0 aspirin 325 mg Tablet 325 mg PO QPM RF: 0 isosorbide mononitrate 30 mg Tablet Extended Release 24 Hr 30 mg PO QPM RF: 0 erythromycin 250 mg Tablet 250 mg PO QID PRN (Reason: gastroparesis) RF: 0 pantoprazole 40 mg Tablet,Delayed Release (Dr/Ec) 40 mg PO QPM RF: 0 levothyroxine 125 mcg Tablet 125 mcg PO QPM RF: 0 nitroglycerin 0.4 mg Tablet, Sublingual 0.4 mg SUBLINGUAL Q5-15M PRN (Reason: Chest Pain) RF: 0 vitamin B complex [B-Complex] Tablet 1 tab PO QPM RF: 0 lisinopril 5 mg Tablet 5 mg PO QPM RF: 0 mupirocin 2 % Ointment 1 applic TOPICAL BID PRN (Reason: Rash) RF: 0 gabapentin 100 mg Capsule 400 mg PO TID RF: 0 dicyclomine 10 mg Capsule 10 mg PO QID PRN (Reason: abd pain) RF: 0 duloxetine 20 mg Capsule,Delayed Release(Dr/Ec) 20 mg PO QPM RF: 0 cholecalciferol (vitamin D3) 2,000 unit Tablet 2,000 unit PO QPM RF: 0
[2019-05-23] MEDS: SODIUM CHLORIDE 0.9% 1,000 ML 150 ML IV (06:54)
[2019-05-23] MEDS: NITROGLYCERIN 0.4 MG SL TAB SL ×3 (06:55→07:07)
[2019-05-23 07:00] LABS: Alanine Aminotransferase 18 IU/L (<50); Albumin 4.7 g/dL (3.5-5.0); Albumin Globulin Ratio 1.4 (1.0-2.8); Alkaline Phosphatase 80 U/L (38-126); Aspartate Aminotransferase 27 IU/L (17-59); BUN Creatinine Ratio 16.7 (6-22); Bilirubin Total 0.7 mg/dL (0.2-1.3); Blood Urea Nitrogen 15 mg/dL (9-20); Calcium 9.5 mg/dL (8.4-10.2); Carbon Dioxide 26 mmol/L (22-32); Chloride 96 mmol/L (98-107); Creatine Kinase 32 U/L (55-170); Estimated Glomerular Filt Rate > 60.0 mL/min (>60); Globulin 3.3 g/dL (1.7-4.1); Glucose 120 mg/dL (80-110); HEMOLYSIS < 15 (0-50); Lipase 154 U/L (23-300); Sodium 133 mmol/L (137-145)
[2019-05-23] MEDS: ONDANSETRON 4 MG/2 ML INJ IV (07:04)
[2019-05-23 07:11] LABS: Troponin I < 0.012 ng/mL (0.01-0.034)
[2019-05-23] MEDS: ADENOSINE 6 MG/2 ML VIAL 18 MG IV (07:30)
[2019-05-23] MEDS: METOPROLOL TARTRATE 5 MG/5 ML INJ IV (07:35)
[2019-05-23] MEDS: MORPHINE 2 MG/ML INJ IV (07:52)
[2019-05-23] MEDS: HEPARIN 5,000 UNIT/ML VIAL 5000 UNIT IV (08:00)
[2019-05-23] MEDS: NITROGLYCERIN 50 MG/250 ML INFUS..BTL IV (08:02)
[2019-05-23] MEDS: HEPARIN DRIP 25,000 UNIT/500 ML IV.SOLN 20 UNIT IV (08:02)
--- NOTE | 2019-05-23 08:12 | PC.NURSE ---
Pt arrived via POV. reports 9/10 CP that woke him from sleep. pain midsternal, no radiation, c/o nausea and SOB. h/o DM and 9 cardiac stents done at [facility]. Last stent was placed 2 weeks ago. Pt getting serial EKGs. zofran given. Pt HR ST at 105, BP 110's/sys. IV obtained x 3 and labs drawn and sent. Nitro x 3 given w/o change in pain. Adenosine 6mg given to slow rate. Metoprolol 5mg given. Morphine 2 mg given which decreased pain to 4/10. RN noted ST segment increasing on monitor. new EKG obtained. Stemi alert called. pt received 4000mg heparin bolus, heparin gtt at 20ml/hr, Nitro gtt at 5mcg. Pt took baby ASA x 3 and plavix at home. EMS arrived for stat transport. Report given. Heparin and Nitro gtt stopped for transport per protocol. Pt AAOx3, Lungs clear, Abd SNT, HR 99 BP 90/65 upon transfer.
== END 2019-05-23 08:00 | disposition short-term general hospital (02) ==
PROVIDERS: Emergency Medicine; Emergency Provider Emergency Medicine
DX: I21.3 ST elevation (STEMI) myocardial infarction of unspecified site (principal); I10 Essential (primary) hypertension; E78.5 Hyperlipidemia, unspecified; R06.00 Dyspnea, unspecified
CPT/HCPCS: 36415; 71045; 80053; 82550; 83690; 84484; 85025; 93005; 93010; 96361; 96374; 96375; 99285; 99291; 99292; J0153; J1644; J2270; J2405

== ENCOUNTER 2019-08-25 22:00 | Emergency (ER) | payer MEDICARE, SELFPAY ==
[2019-08-25 22:00] VITALS: BP 212/95; PULSE 81; RESP 18; TEMP 37.3; O2SAT 99; BMI 25.0
--- NOTE | 2019-08-25 22:10 | DI.RAD.S_ITS ---
PROCEDURE: XR CHEST 1V INDICATIONS: chest pain TECHNIQUE: One view of the chest was acquired. COMPARISON: [facility], CR, XR CHEST 2 VIEWS, 07/29/2019, 13:22. [facility], CR, XR CHEST 1V, 05/23/2019, 6:39. FINDINGS: Surgical changes and devices: Surgical clips are redemonstrated in the region of the right thoracic inlet. Lungs and pleura: Lungs are clear. No pleural effusions or pneumothorax. Mediastinum: Mediastinal contours appear normal. Heart size is normal. Bones and chest wall: No suspicious bony lesions. Overlying soft tissues appear unremarkable. IMPRESSION: 1. No acute cardiopulmonary disease. Dictated by: Jose Antonio Wilson M.D. on 08/26/2019 at 9:00 Approved by: Jose Antonio Wilson M.D. on 08/26/2019 at 9:02
--- NOTE | 2019-08-25 22:17 | ED.CHESTPAIN ---
HPI - Chest Pain General Chief Complaint: Chest Pain Stated Complaint: chest pain Time Seen by Provider: 08/25/19 22:01 Source: patient Mode of arrival: Ambulatory Limitations: no limitations History of Present Illness HPI narrative: 64-year-old male smoker with history of coronary artery disease, GERD, hypothyroidism presents with a chief complaint of multiple episodes of chest pain over the course of the day. He had been in his normal state of health until this afternoon when he developed retrosternal chest pressure with radiation to his left chest that was rather intense and completely resolved after 3 nitro. He had a few asymptomatic hours and then just prior to his arrival, again at rest he developed more intense retrosternal chest pressure with radiation to his left chest associated with some nausea and shortness of breath. He took 3 more nitro and had no improvement in his symptoms. It is hard for him to tell if there is any provocation with exertion but he thinks not. On arrival his discomfort is rated 7/10 and achy or pressure like in nature. He was seen here in May of this year and sent to an outside facility for heart catheterization and received his stent. He states this feels more like his chronic abdominal pain than his prior cardiac MD complaint: chest pain Onset (ago): hour(s) Duration: constant Onset: during rest Pain location: substernal and left chest Severity: moderate Quality: tightness and aching Pain radiation: LUE Relieving factors: nitroglycerin Exacerbating factors: nothing Associated symptoms: nausea and dyspnea Treatments prior to arrival chest pain: nitroglycerin Related Data Home Medications Medication Instructions Recorded Confirmed aspirin 325 mg PO QPM 05/01/19 05/01/19 carvedilol 6.25 mg PO BID 05/01/19 05/01/19 cholecalciferol (vitamin D3) 2,000 unit PO QPM 05/01/19 05/01/19 dicyclomine 10 mg PO QID PRN 05/01/19 05/01/19 duloxetine 20 mg PO QPM 05/01/19 05/01/19 erythromycin 250 mg PO QID PRN 05/01/19 05/01/19 gabapentin 400 mg PO TID 05/01/19 05/01/19 isosorbide mononitrate 30 mg PO QPM 05/01/19 05/01/19 levothyroxine 125 mcg PO QPM 05/01/19 05/01/19 lisinopril 5 mg PO QPM 05/01/19 05/01/19 metformin 500 mg PO BID 05/01/19 05/01/19 mupirocin 1 applic TOPICAL BID PRN 05/01/19 05/01/19 nitroglycerin 0.4 mg SUBLINGUAL Q5-15M PRN 05/01/19 05/01/19 pantoprazole 40 mg PO QPM 05/01/19 05/01/19 vitamin B complex [B-Complex] 1 tab PO QPM 05/01/19 05/01/19 Allergies Allergy/AdvReac Type Severity Reaction Status Date / Time gemfibrozil Allergy Verified 05/01/19 12:21 Review of Systems Constitutional Constitutional: Denies chills, Denies fatigue, Denies fever(s), Denies frequent falls, Denies lethargy and Denies weakness Eyes Eyes: Denies change in vision, Denies eye discharge, Denies irritation and Denies loss of vision ENT Ears, Nose, Mouth, and Throat: Denies change in voice, Denies dizziness, Denies neck pain, Denies sore throat and Denies throat swelling Cardiovascular Cardiovascular: Reports chest pain, Denies irregular heart rhythm, Denies lightheadedness, Denies palpitations, Reports dyspnea, Denies dyspnea on exertion and Denies orthopnea Respiratory Respiratory: Denies cough, Reports dyspnea, Denies dyspnea on exertion and Denies wheezing Gastrointestinal Gastrointestinal: Denies abdominal pain, Denies change in bowel habits, Denies diarrhea, Reports nausea and Denies vomiting Musculoskeletal Musculoskeletal: Denies neck pain and Denies numbness Integumentary/Breasts Skin/Breast: Denies pruritus, Denies erythema, Denies rash and Denies wounds Neurologic Neurologic: Denies behavioral changes, Denies confusion, Denies dizziness, Denies frequent falls, Denies loss of vision, Denies numbness and Denies weakness Psychiatric Psychiatric: Denies anxiety, Denies behavioral changes, Denies confusion, Denies depression, Denies homicidal ideation and Denies suicidal ideation Endocrine Endocrine: Denies fatigue, Denies flushing and Denies palpitations Hematologic/Lymphatic Hematologic/Lymphatic: Denies easy bruising Allergic/Immunologic Allergic/Immunologic: Denies urticaria, Denies throat swelling and Denies wheezing Patient History Social History (Reviewed 08/25/19 @ 22:19 by DARCI Pinedo Smoking Status: Current some day smoker Smoking Status: Current some day smoker alcohol intake frequency: holidays/special occasions only Substance Use Type: does not use Exam Narrative Exam Narrative: GENERAL: [64] year old patient appears stated age. Well-nourished, well-developed patient, in mild distress. Anxious, clearly not feeling well HEAD: Atraumatic. Normocephalic. EYES: Pupils equal round and reactive. Extraocular motions intact. No scleral icterus. No injection or drainage. ENT: Nose without bleeding, purulent drainage. Throat without erythema, tonsillar hypertrophy or exudate. Airway patent. NECK: Trachea midline. Non tender CARDIOVASCULAR: Regular rate and rhythm without murmurs, gallops, or rubs. RESPIRATORY: Clear to auscultation. Breath sounds equal bilaterally. No wheezes, rales, or rhonchi. GASTROINTESTINAL: Abdomen soft, non-tender, nondistended. EXTREMITIES: No edema or joint tenderness. BACK: Nontender without deformity or crepitance. No flank tenderness. NEURO: AOx3. SKIN: No rash or erythema of visible areas Initial Vital Signs Initial Vital Signs: Vital Signs Temperature 99.2 F 08/25/19 22:00 Pulse Rate 81 08/25/19 22:00 Respiratory Rate 18 08/25/19 22:00 Blood Pressure 212/95 H 08/25/19 22:00 Pulse Oximetry 99 08/25/19 22:00 Course Orders Ordered: ED Orders 08/25/19 22:00 Complete Blood Count AUTO DIFF Stat Comprehensive Metabolic Panel Stat D Dimer Stat Lipase Stat NT-proBNP (BNP-Adult 18+) Stat Partial Thromboplastin Time Stat Prothrombin Time INR Stat Troponin & CK Cardiac Panel Stat 08/25/19 22:10 XR chest 1V Stat EKG-12 Lead Stat 08/26/19 00:10 Troponin I Stat Sodium Chloride (Normal Saline 0.9%) 1,000 mls @ 150 mls/hr IV CONT SHARAD Last Infusion: 08/26/19 01:01 Dose: 150 mls/hr Documented by: Admin: 08/25/19 22:19 Dose: 150 mls/hr Documented by: TITI Nitroglycerin (Nitrostat) 0.4 mg SL [id number] PRN PRN Reason: Chest Pain Last Admin: 08/25/19 22:24 Dose: 0.4 mg Documented by: Admin: 08/25/19 22:18 Dose: 0.4 mg Documented by: TITI Discontinued Medications Aspirin (Aspirin Chew) 324 mg PO NOW ONE Stop: 08/25/19 22:11 Last Admin: 08/25/19 22:19 Dose: 324 mg Documented by: TITI Al Hydrox/Mg Hydrox/Simethicone 20 ml/ Lidocaine HCl 15 ml 0 ml PO NOW ONE Stop: 08/25/19 22:53 Last Admin: 08/25/19 23:06 Dose: 45 ml Documented by: TITI Metoclopramide HCl (Reglan) 5 mg IV NOW ONE Stop: 08/25/19 23:31 Last Admin: 08/25/19 23:34 Dose: 5 mg Documented by: TITI Morphine Sulfate (Morphine) 4 mg IV NOW ONE Stop: 08/25/19 22:37 Last Admin: 08/25/19 22:45 Dose: 4 mg Documented by: TITI Pantoprazole Sodium (Protonix) 40 mg IV NOW ONE Stop: 08/25/19 22:53 Last Admin: 08/25/19 23:05 Dose: 40 mg Documented by: TITI Reevaluation(s) Reevaluation #1: chest pain worsening, nitro not helping. Morphine brings down to 4/10. Repeat EKG patient requesting medications for his stomach, stating he usually gets better with reglan when he feels like this. patient has complete resolution of symptoms after above stated medications. Repeat troponin negative. EKGs non ischemic. Patient given extensive return precautions and encouraged to follow closely with his registered account administrator Vital Signs Vital signs: Vital Signs - 8 hr 08/25/19 22:00 08/25/19 22:18 08/25/19 22:22 Temperature 99.2 F Pulse Rate 81 69 76 Respiratory Rate 18 12 Blood Pressure 212/95 H 164/75 H Blood Pressure [Right Arm] 134/75 Pulse Oximetry 99 96 08/25/19 22:24 08/25/19 22:31 08/25/19 23:53 Temperature Pulse Rate 76 77 61 Respiratory Rate 10 L 16 Blood Pressure 134/75 Blood Pressure [Right Arm] 133/63 127/61 Pulse Oximetry 96 94 08/26/19 01:00 Temperature Pulse Rate 64 Respiratory Rate 12 Blood Pressure Blood Pressure [Right Arm] 158/79 H Pulse Oximetry 94 MDM - Chest Pain Lab Data Result diagrams: 08/25/19 22:00 08/25/19 22:00 Labs: Lab Results 08/25/19 08/25/19 08/25/19 Range/Units 22:00 22:00 22:00 WBC 5.8 (4.5-11.0) X10^3/uL RBC 4.87 (4.5-5.9) X10^6/uL Hgb 14.7 (13.5-17.5) g/dL Hct 42.4 (41-53) % MCV 87.2 (80-100) fL MCH 30.2 (26-34) PG MCHC 34.7 (30-36) % RDW 15.1 H (11.6-14.8) % Plt Count 401 H (150-400) X10^3/uL Neut % (Auto) 60.6 (50-75) % Lymph % (Auto) 25.6 (25-40) % [place] % (Auto) 11.1 (3-14) % Eos % (Auto) 2.1 (2-4) % Baso % (Auto) 0.6 (0-2) % Neut # (Auto) 3500 (7933-8303) /uL Lymph # (Auto) 1500 (0724-1342) /uL [place] # (Auto) 600 (0-900) /uL Eos # (Auto) 100 (0-450) /uL Baso # (Auto) 0 (0-100) /uL PT 11.2 (10.1-12.7) SECONDS INR 1.0 (0.9-1.3) APTT 42 H (26.4-36.2) SECONDS D-Dimer 263 H (<230) ng/mL Sodium 136 L (137-145) mmol/L Potassium 4.4 (3.4-5.1) mmol/L Chloride 100 (98-107) mmol/L Carbon Dioxide 24 (22-32) mmol/L BUN 20 (9-20) mg/dL Creatinine 1.18 (0.66-1.25) mg/dL Estimated GFR > 60.0 (>60) mL/min BUN/Creatinine Ratio 16.9 (6-22) Glucose 120 H (80-110) mg/dL Calcium 10.0 (8.4-10.2) mg/dL Total Bilirubin 0.5 (0.2-1.3) mg/dL AST 26 (17-59) IU/L ALT 19 (<50) IU/L Alkaline Phosphatase 53 (38-126) U/L Total Creatine Kinase 33 L (55-170) U/L CK-MB (CK-2) TNP CK-MB (CK-2) Rel Index TNP Troponin I < 0.012 (0.01-0.034) ng/mL NT-Pro-B Natriuret Pep 119 (<125) pg/mL Total Protein 8.1 (6.3-8.2) g/dL Albumin 4.6 (3.5-5.0) g/dL Globulin 3.5 (1.7-4.1) g/dL Albumin/Globulin Ratio 1.3 (1.0-2.8) Lipase 99 (23-300) U/L 08/26/19 Range/Units 00:10 WBC (4.5-11.0) X10^3/uL RBC (4.5-5.9) X10^6/uL Hgb (13.5-17.5) g/dL Hct (41-53) % MCV (80-100) fL MCH (26-34) PG MCHC (30-36) % RDW (11.6-14.8) % Plt Count (150-400) X10^3/uL Neut % (Auto) (50-75) % Lymph % (Auto) (25-40) % [place] % (Auto) (3-14) % Eos % (Auto) (2-4) % Baso % (Auto) (0-2) % Neut # (Auto) (2535-0168) /uL Lymph # (Auto) (1584-4997) /uL [place] # (Auto) (0-900) /uL Eos # (Auto) (0-450) /uL Baso # (Auto) (0-100) /uL PT (10.1-12.7) SECONDS INR (0.9-1.3) APTT (26.4-36.2) SECONDS D-Dimer (<230) ng/mL Sodium (137-145) mmol/L Potassium (3.4-5.1) mmol/L Chloride (98-107) mmol/L Carbon Dioxide (22-32) mmol/L BUN (9-20) mg/dL Creatinine (0.66-1.25) mg/dL Estimated GFR (>60) mL/min BUN/Creatinine Ratio (6-22) Glucose (80-110) mg/dL Calcium (8.4-10.2) mg/dL Total Bilirubin (0.2-1.3) mg/dL AST (17-59) IU/L ALT (<50) IU/L Alkaline Phosphatase (38-126) U/L Total Creatine Kinase (55-170) U/L CK-MB (CK-2) CK-MB (CK-2) Rel Index Troponin I < 0.012 (0.01-0.034) ng/mL NT-Pro-B Natriuret Pep (<125) pg/mL Total Protein (6.3-8.2) g/dL Albumin (3.5-5.0) g/dL Globulin (1.7-4.1) g/dL Albumin/Globulin Ratio (1.0-2.8) Lipase (23-300) U/L ECG Data Attestation: I personally reviewed and interpreted this ECG as follows: Prior ECG tracings: available for review Interpretation: EKG #1 2205: NSR rate 71. No ST elevations or depressions. No T wave inversions. No ectopy EKG #2 unchanged EKG #3 unchanged MDM Narrative Medical decision making narrative: Multiple causes of chest pain considered including [place], PE, pneumothorax, pneumonia, aortic dissection, and pleurisy. Patient reports no radiation, no diaphoresis, no provocation with exertion, and no vomiting Patient's symptoms improved or duration of stay with above-stated therapies. Findings and discharge diagnosis discussed with patient/family followed by verbalization of understanding Return precautions discussed with patient/family whom verbalize understanding. Discharge Plan Departure Patient Disposition: Home Clinical Impression: Atypical chest pain, Abdominal pain, epigastric Discharge Date/Time: 08/26/19 01:14 Instructions: DI for Gastroesophageal Reflux Disease (GERD), DI for Atypical Chest Pain, DI for Epigastric Pain Activity Restrictions/Additional Instructions: *You have been diagnosed with [ atypical chest and upper abdominal pain. Multiple EKGs and cardiac enzymes are very reassuring. ] *What to do: *Take medications as directed *Follow up with your primary care provider in 2-3 days, call for an appointment. Let them know you were seen in the Emergency Department and that we ask that you be seen in follow up *Return to ER if you should have any new, worsening or concerning symptoms Prescriptions: No Action metformin 500 mg Tablet 500 mg PO BID RF: 0 carvedilol 6.25 mg Tablet 6.25 mg PO BID RF: 0 aspirin 325 mg Tablet 325 mg PO QPM RF: 0 isosorbide mononitrate 30 mg Tablet Extended Release 24 Hr 30 mg PO QPM RF: 0 erythromycin 250 mg Tablet 250 mg PO QID PRN (Reason: gastroparesis) RF: 0 pantoprazole 40 mg Tablet,Delayed Release (Dr/Ec) 40 mg PO QPM RF: 0 levothyroxine 125 mcg Tablet 125 mcg PO QPM RF: 0 nitroglycerin 0.4 mg Tablet, Sublingual 0.4 mg SUBLINGUAL Q5-15M PRN (Reason: Chest Pain) RF: 0 vitamin B complex [B-Complex] Tablet 1 tab PO QPM RF: 0 lisinopril 5 mg Tablet 5 mg PO QPM RF: 0 mupirocin 2 % Ointment 1 applic TOPICAL BID PRN (Reason: Rash) RF: 0 gabapentin 100 mg Capsule 400 mg PO TID RF: 0 dicyclomine 10 mg Capsule 10 mg PO QID PRN (Reason: abd pain) RF: 0 duloxetine 20 mg Capsule,Delayed Release(Dr/Ec) 20 mg PO QPM RF: 0 cholecalciferol (vitamin D3) 2,000 unit Tablet 2,000 unit PO QPM RF: 0
[2019-08-25 22:18] VITALS: BP 164/75; PULSE 69
[2019-08-25] MEDS: NITROGLYCERIN 0.4 MG SL TAB SL ×2 (22:18→22:24)
[2019-08-25] MEDS: ASPIRIN 81 MG CHEW TAB 324 MG PO (22:19)
[2019-08-25] MEDS: SODIUM CHLORIDE 0.9% 1,000 ML 150 ML IV (22:19)
[2019-08-25 22:21] LABS: Add Manual Diff / Slide Review NO; Basophils Absolute Auto 0 /uL (0-100); Basophils Percent Auto 0.6 % (0-2); Eosinophils Absolute Auto 100 /uL (0-450); Eosinophils Percent Auto 2.1 % (2-4); Hematocrit 42.4 % (41-53); Hemoglobin 14.7 g/dL (13.5-17.5); Lymphocytes Absolute Auto 1500 /uL (1100-4500); Lymphocytes Percent Auto 25.6 % (25-40); Mean Corpuscular HGB Conc 34.7 % (30-36); Mean Corpuscular Hemoglobin 30.2 PG (26-34); Mean Corpuscular Volume 87.2 fL (80-100); Monocytes Absolute Auto 600 /uL (0-900); Monocytes Percent Auto 11.1 % (3-14); Neutrophils Absolute Auto 3500 /uL (1500-7000); Neutrophils Percent Auto 60.6 % (50-75); Platelet Count 401 X10^3/uL (150-400); Red Blood Cell Count 4.87 X10^6/uL (4.5-5.9); Red Cell Distribution Width 15.1 % (11.6-14.8); White Blood Cell Count 5.8 X10^3/uL (4.5-11.0)
[2019-08-25 22:22] VITALS: BP 134/75; PULSE 76; RESP 12; O2SAT 96
[2019-08-25 22:24] VITALS: BP 134/75; PULSE 76
[2019-08-25 22:26] LABS: Alanine Aminotransferase 19 IU/L (<50); Albumin 4.6 g/dL (3.5-5.0); Albumin Globulin Ratio 1.3 (1.0-2.8); Alkaline Phosphatase 53 U/L (38-126); Aspartate Aminotransferase 26 IU/L (17-59); BUN Creatinine Ratio 16.9 (6-22); Bilirubin Total 0.5 mg/dL (0.2-1.3); Blood Urea Nitrogen 20 mg/dL (9-20); Carbon Dioxide 24 mmol/L (22-32); Chloride 100 mmol/L (98-107); Creatine Kinase 33 U/L (55-170); Estimated Glomerular Filt Rate > 60.0 mL/min (>60); Globulin 3.5 g/dL (1.7-4.1); Glucose 120 mg/dL (80-110); HEMOLYSIS < 15 (0-50); Lipase 99 U/L (23-300); Potassium 4.4 mmol/L (3.4-5.1); Prothrombin Time 11.2 SECONDS (10.1-12.7); Sodium 136 mmol/L (137-145); Total Protein 8.1 g/dL (6.3-8.2)
[2019-08-25 22:29] LABS: D Dimer 263 ng/mL (<230); PTT Partial Thromboplastin Tim 42 SECONDS (26.4-36.2)
[2019-08-25 22:31] VITALS: BP 133/63; PULSE 77; RESP 10; O2SAT 96
[2019-08-25 22:38] LABS: NT-proBNP (BNP-Adult 18+) 119 pg/mL (<125); Troponin I < 0.012 ng/mL (0.01-0.034)
[2019-08-25] MEDS: MORPHINE 4 MG/ML INJ IV (22:45)
[2019-08-25] MEDS: PANTOPRAZOLE 40 MG VIAL IV (23:05)
[2019-08-25] MEDS: MAG HYDROX/ALUMINUM/SIMETH SUS 20 ML, LIDOCAINE VISCOUS 2% 15 ML PO (23:06)
[2019-08-25] MEDS: METOCLOPRAMIDE 10 MG/2 ML INJ 5 MG IV (23:34)
[2019-08-25 23:53] VITALS: BP 127/61; PULSE 61; RESP 16; O2SAT 94
[2019-08-26 00:46] LABS: Troponin I < 0.012 ng/mL (0.01-0.034)
[2019-08-26 01:00] VITALS: BP 158/79; PULSE 64; RESP 12; O2SAT 94
== END 2019-08-26 01:14 | disposition home or self-care (01) ==
PROVIDERS: Emergency Provider Emergency Medicine
DX: R07.89 Other chest pain (principal); R10.13 Epigastric pain; R06.00 Dyspnea, unspecified; R11.0 Nausea; I25.10 Atherosclerotic heart disease of native coronary artery without angina pectoris; K21.9 Gastro-esophageal reflux disease without esophagitis; E03.9 Hypothyroidism, unspecified
CPT/HCPCS: 36415; 71045; 80053; 82550; 83690; 83880; 84484; 85025; 85379; 85610; 85730; 93005; 96361; 96374; 96375; 99285; C9113; J2270; J2765

== ENCOUNTER → 2020-01-25 11:24 | Outpatient (CLI) | payer MEDICARE, SELFPAY | PROVIDERS: Visit Provider Physician Assistant | DX: L08.9 Local infection of the skin and subcutaneous tissue, unspecified (principal); S90.426A Blister (nonthermal), unspecified lesser toe(s), initial encounter | CPT/HCPCS: 87070; 87075; 87077; 87147; 87186; 87205 ==

== ENCOUNTER 2023-02-05 14:15 | Outpatient (RCR) | payer MEDICARE, SELFPAY ==
--- NOTE | 2023-02-01 13:30 | PT.OPPOC ---
Physical, Occupational & Speech Therapy At [facility] Current Diagnoses Pain in right shoulder (02/01/23) Visit Care Team Role Provider Type Other Providers Specialty: Address: Phone: Fax: Email: Doctor Zoe MD Family Provider Non-Staff Specialty: Medical Address: Phone: Fax: Email: Hafsa Ramsey MD Attending Provider Non-Staff Primary Care Provider Referring Provider Specialty: Internal Medicine Address: [address] [place] [address], [id number] Email: Plan Of Care PT-OP-T Assessment and Plan Start: 01/31/23 17:07 Freq: Status: Active Protocol: Document 02/01/23 13:30 AM (Rec: 02/01/23 18:26 AM [id number]) Physical Therapy Assessment Goals HEP Usp Goal (LTG) Pt independent with HEP. LTG Duration 03/01/23 Function Impairment Pt with reported difficulty reaching behind his back with ADLs Cutter Wet Machine Goal (LTG) Pt to report decreased pain and improved function with reaching behind back (ext and MR) for ADLs LTG Duration 03/01/23 ROM Impairment Pt with limitations with R AROM Usp Goal (LTG) Pt with 10 deg improvement in flex and abd AROM. LTG Duration 03/01/23 Assessment Summary Assessment Ermias Baez presents to PT with R shoulder pain and dysfunction that has improved with recent cortisone injection. Pt demonstrates continued limitations at R shoulder ROM. Pt with positive shoulder impingement symptoms . Pt demonstrates scapular dyskinesia with shoulder AROM. Pt also demonstrates discomfort at R UT, requiring cueing for decreased activation with exercises. Pt would benefit from continued PT to progress R shoulder functional mobility and strength as tolerated. Physical Therapy Plan Frequency and Duration Frequency of Treatment 2x/Week Duration of treatment (weeks) 4 Plan of Care Start Date 02/01/23 Plan of Care End Date 03/01/23 Therapeutic Interventions Therapeutic Interventions Home Exercise Program,Joint Mobilizations,Manual Therapy, Neuromuscular Re-education, Patient/Caregiver Education, Self-Care/Home Management,Soft Tissue Mobilization,Taping, Therapeutic Activities, Therapeutic Exercises Modalities Cold Pack/Ice Massage,Hot Packs Next Visit Focus/Plan Next Note Type Treatment Note Next Visit Plan progress shoulder ROM and strength as tolerated, assess UT involvement with HEP Plan of Care Dates Plan of Care Start Date 02/01/23 Plan of Care End Date 03/01/23 Electronically Signed by: Mima Moses, SURYA 02/01/23 0677 If you are in agreement with this Plan of Care, please return a signed and dated copy. I have reviewed this Plan of Care and certify that the skilled therapy services above are required to meet the patient?s needs. Physician Signature Date Printed Name and Credentials Clinical Instructor Signature Printed Name and Credentials
--- NOTE | 2023-02-01 13:30 | PT.OIE ---
Current Diagnoses Pain in right shoulder (02/01/23) Visit Care Team Role Provider Type Other Providers Specialty: Address: Phone: Fax: Email: Doctor Zoe MD Family Provider Non-Staff Specialty: Medical Address: Phone: Fax: Email: Hafsa Ramsey MD Attending Provider Non-Staff Primary Care Provider Referring Provider Specialty: Internal Medicine Address: [address] [place] [address], [id number] Email: Physical Therapy Initial Evaluation PT-OP-A Visit Information Start: 01/31/23 17:07 Freq: Status: Active Protocol: Document 02/01/23 13:30 AM (Rec: 02/01/23 18:26 AM [id number]) Out-Patient Physical Therapy Visit Information Visit Information Visit Type Initial Evaluation Visit Start Time 13:31 Visit Stop Time 14:15 Total Visit Minutes 44 Visit Number 1 Number of CHILDREN'S COUNSELOR Visits 0 Evaluation Information Evaluation Date 02/01/23 Precautions Precautions Pt reports that he has had hx of 3 heart attacks, last heart cath in 2019. Pt had a CVA in 2021. Pt denies residual symptoms. Pt has hx of falls, though has not had any in the last few years. Had PT for this. PT-OP-B Current Condition Start: 01/31/23 17:07 Freq: Status: Active Protocol: Document 02/01/23 13:30 AM (Rec: 02/01/23 18:26 AM [id number]) Current Condition History of Current Condition Onset Date 2 months Current Complaints mild R shoulder pain. History of Current Condition Pt reports that he woke up 1 morning and had a hard time moving his arm. Pt reports that he has difficulty with shoulder extension. Pt reports that he prefers to sleep on his R and is R UE dominant. Pt had a steroid injection and reports that it has helped significantly. Prior Treatments and Tests X-ray showed arthritis per pt report, steroid injection at R shoulder Prior Functional Status Baseline Function- ADL's Independent Baseline Function- Mobility Independent Current Functional Impairments (Reported) Functional Limitations- ADL's Reaching back, reaching out in front of him 90 deg shoulder flexion PT-OP-C Subjective Start: 01/31/23 17:07 Freq: Status: Active Protocol: Document 02/01/23 13:30 AM (Rec: 02/01/23 18:26 AM [id number]) Patient Questionnaires Quick Dash- Upper Extremity Quick Dash UE Score 9 Quick Dash UE Impairment 1 to 19% Impaired (Score 1-19) OP-PT Pain Assessment Location Right Posterior Lateral Shoulder Pain Location Details R posterior-lateral shoulder Intensity 1 Description Sharp Description- Other 8/10 at the worst Frequency Daily Pain Aggravating Factors ADL's,Activity Other Pain Aggravating Factors shower Pain Alleviating Factors Medication,Rest Other Pain Alleviating Factors cortisone injection PT-OP-K Range of Motion Start: 01/31/23 17:07 Freq: Status: Active Protocol: Document 02/01/23 13:30 AM (Rec: 02/01/23 18:26 AM [id number]) Shoulder Goniometric Range of Motion Shoulder Left Passive Flexion 150 Abduction 160 External Rotation at 45 degrees 88 Abduction Internal Rotation 80 Right Passive Flexion 132 Abduction 140 External Rotation at 45 degrees 60 Abduction Internal Rotation 70 Left Active Flexion 132 Extension 60 Abduction 135 Internal Rotation Behind Back (text) T10 Comments Abd in scaption range ER Aply: T2 Right Active Testing Position Supine Flexion 110 Extension 40 Abduction 135 Internal Rotation Behind Back (text) L1 Comments abd in scaption range ER Aply: T2 PT-OP-L Special Tests Start: 01/31/23 17:07 Freq: Status: Active Protocol: Document 02/01/23 13:30 AM (Rec: 02/01/23 18:26 AM [id number]) Special Tests Shoulder Special Tests Elevation Impingement Test Results + on R Empty Can Test Results + on R PT-OP-M Strength Start: 01/31/23 17:07 Freq: Status: Active Protocol: Document 02/01/23 13:30 AM (Rec: 02/01/23 18:26 AM [id number]) Shoulder Strength Shoulder Manual Muscle Testing Left Flexion 4- Good- Extension 4- Good- Abduction (C5) 4- Good- External Rotation 4- Good- Internal Rotation 4- Good- Right Flexion 4- Good- Extension 4- Good- Abduction (C5) 4- Good- External Rotation 4- Good- Internal Rotation 4- Good- Elbow/Forearm Strength Elbow and Forearm Manual Muscle Testing Right Flexion (C6) 4- Good- Extension (C7) 4- Good- Left Flexion (C6) 4- Good- Extension (C7) 4- Good- PT-OP-Q Treatments Start: 01/31/23 17:07 Freq: Status: Active Protocol: Document 02/01/23 13:30 AM (Rec: 02/01/23 18:26 AM [id number]) Therapeutic Exercises Standing Exercises Shoulder extension Side bilateral Resistance light blue Reps/Minutes x10 Comments cues for scap control Wall slide Reps/Minutes x5 Comments cues to decrease tension at UT and to not push into painful range PT-OP-T Assessment and Plan Start: 01/31/23 17:07 Freq: Status: Active Protocol: Document 02/01/23 13:30 AM (Rec: 02/01/23 18:26 AM [id number]) Physical Therapy Assessment Goals HEP Care Home Goal (LTG) Pt independent with HEP. LTG Duration 03/01/23 Function Impairment Pt with reported difficulty reaching behind his back with ADLs Appeals Coordinator Goal (LTG) Pt to report decreased pain and improved function with reaching behind back (ext and MR) for ADLs LTG Duration 03/01/23 ROM Impairment Pt with limitations with R AROM Appeals Coordinator Goal (LTG) Pt with 10 deg improvement in flex and abd AROM. LTG Duration 03/01/23 Assessment Summary Assessment Ermias Baez presents to PT with R shoulder pain and dysfunction that has improved with recent cortisone injection. Pt demonstrates continued limitations at R shoulder ROM. Pt with positive shoulder impingement symptoms . Pt demonstrates scapular dyskinesia with shoulder AROM. Pt also demonstrates discomfort at R UT, requiring cueing for decreased activation with exercises. Pt would benefit from continued PT to progress R shoulder functional mobility and strength as tolerated. Physical Therapy Plan Frequency and Duration Frequency of Treatment 2x/Week Duration of treatment (weeks) 4 Plan of Care Start Date 02/01/23 Plan of Care End Date 03/01/23 Therapeutic Interventions Therapeutic Interventions Home Exercise Program,Joint Mobilizations,Manual Therapy, Neuromuscular Re-education, Patient/Caregiver Education, Self-Care/Home Management,Soft Tissue Mobilization,Taping, Therapeutic Activities, Therapeutic Exercises Modalities Cold Pack/Ice Massage,Hot Packs Next Visit Focus/Plan Next Note Type Treatment Note Next Visit Plan progress shoulder ROM and strength as tolerated, assess UT involvement with HEP
--- NOTE | 2023-02-05 14:18 | PT.OTN ---
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 Pt had a CVA in 2021. Pt denies residual symptoms. Pt has hx of falls, though has not had any in the last few years. Had PT for this. PT-OP-B Current Condition Start: 01/31/23 17:07 Freq: Status: Active Protocol: Document 02/05/23 14:18 AM (Rec: 02/05/23 17:03 AM [id number]) Current Condition History of Current Condition Onset Date 2 months Current Complaints mild R shoulder pain. History of Current Condition Pt reports that he woke up 1 morning and had a hard time moving his arm. Pt reports that he has difficulty with shoulder extension. Pt reports that he prefers to sleep on his R and is R UE dominant. Pt had a steroid injection and reports that it has helped significantly. Prior Treatments and Tests X-ray showed arthritis per pt report, steroid injection at R shoulder PT-OP-C Subjective Start: 01/31/23 17:07 Freq: Status: Active Protocol: Document 02/05/23 14:18 AM (Rec: 02/05/23 17:03 AM [id number]) OP-PT Subjective Patient Comments Patient Comments Pt reports that he helped his sister move over the weekend and that seemed to flare his shoulder up a bit. PT-OP-K Range of Motion Start: 01/31/23 17:07 Freq: Status: Active Protocol: Document 02/01/23 13:30 AM (Rec: 02/01/23 18:26 AM [id number]) Shoulder Goniometric Range of Motion Shoulder Left Passive Flexion 150 Abduction 160 External Rotation at 45 degrees 88 Abduction Internal Rotation 80 Right Passive Flexion 132 Abduction 140 External Rotation at 45 degrees 60 Abduction Internal Rotation 70 Left Active Flexion 132 Extension 60 Abduction 135 Internal Rotation Behind Back (text) T10 Comments Abd in scaption range ER Aply: T2 Right Active Testing Position Supine Flexion 110 Extension 40 Abduction 135 Internal Rotation Behind Back (text) L1 Comments abd in scaption range ER Aply: T2 PT-OP-L Special Tests Start: 01/31/23 17:07 Freq: Status: Active Protocol: Document 02/01/23 13:30 AM (Rec: 02/01/23 18:26 AM [id number]) Special Tests Shoulder Special Tests Elevation Impingement Test Results + on R Empty Can Test Results + on R PT-OP-M Strength Start: 01/31/23 17:07 Freq: Status: Active Protocol: Document 02/01/23 13:30 AM (Rec: 02/01/23 18:26 AM [id number]) Shoulder Strength Shoulder Manual Muscle Testing Left Flexion 4- Good- Extension 4- Good- Abduction (C5) 4- Good- External Rotation 4- Good- Internal Rotation 4- Good- Right Flexion 4- Good- Extension 4- Good- Abduction (C5) 4- Good- External Rotation 4- Good- Internal Rotation 4- Good- Elbow/Forearm Strength Elbow and Forearm Manual Muscle Testing Right Flexion (C6) 4- Good- Extension (C7) 4- Good- Left Flexion (C6) 4- Good- Extension (C7) 4- Good- PT-OP-Q Treatments Start: 01/31/23 17:07 Freq: Status: Active Protocol: Document 02/05/23 14:18 AM (Rec: 02/05/23 17:03 AM [id number]) Therapeutic Exercises Sidelying Exercises External rotation Equipment Used towel Reps/Minutes x15 Abduction Reps/Minutes x10 Comments manual S-I glide with movement Sitting Exercises [place] Sitting Exercise Name flexion Reps/Minutes x2 min Comments cues to avoid painful range Standing Exercises Shoulder extension Side bilateral Resistance [place] TB Reps/Minutes 2x10 Comments cues for scap control Manual Therapy Treatment Soft Tissue Mobilization R shoulder Body Location R UT, pecs, periscapular Body Position supine and L sidelying Joint Mobilizations R shoulder Joint GHJ Direction S-I and A-P Manual Techniques Pec minor Body Position Supine Reps/Duration 2x30 sec PROM Type R shoulder all directions PT-OP-T Assessment and Plan Start: 01/31/23 17:07 Freq: Status: Active Protocol: Document 02/05/23 14:18 AM (Rec: 02/05/23 17:03 AM [id number]) Physical Therapy Assessment Goals HEP Custodial Goal (LTG) Pt independent with HEP. LTG Duration 03/01/23 Function Impairment Pt with reported difficulty reaching behind his back with ADLs Custodial Goal (LTG) Pt to report decreased pain and improved function with reaching behind back (ext and MR) for ADLs LTG Duration 03/01/23 ROM Impairment Pt with limitations with R AROM Custodial Goal (LTG) Pt with 10 deg improvement in flex and abd AROM. LTG Duration 03/01/23 Assessment Summary Assessment Pt continues to require cueing to decrease UT involvement during exercise and PROM. Pt with tenderness along pec muscles with STM, along with stiffness with PROM. Pt demonstrates improving scap control with shoulder extension. Pt is guarded with PROM. Pt would benefit from continued PT to progress shoulder mobility and strength as tolerated. Physical Therapy Plan Frequency and Duration Frequency of Treatment 2x/Week Duration of treatment (weeks) 4 Plan of Care Start Date 02/01/23 Plan of Care End Date 03/01/23 Therapeutic Interventions Therapeutic Interventions Home Exercise Program,Joint Mobilizations,Manual Therapy, Neuromuscular Re-education, Patient/Caregiver Education, Self-Care/Home Management,Soft Tissue Mobilization,Taping, Therapeutic Activities, Therapeutic Exercises Modalities Cold Pack/Ice Massage,Hot Packs Next Visit Focus/Plan Next Note Type Treatment Note Next Visit Plan progress shoulder ROM and strength as tolerated, assess UT involvement with HEP
--- NOTE | 2023-03-08 17:18 | PT-OP ANOTE ---
Pt no showed appt on 03/07 and cancelled 2 prior to this. At this time, DC d/t noncompliance and POC is . VM left re: this and pt informed to call provider for new referral if it is needed.
--- NOTE | 2023-03-08 17:21 | PT.OPDS ---
Current Diagnoses Pain in right shoulder (02/05/23) Visit Care Team Role Provider Type Other Providers Specialty: Address: Phone: Fax: Email: Doctor Zoe MD Family Provider Non-Staff Specialty: Medical Address: Phone: Fax: Email: Hafsa Ramsey MD Attending Provider Non-Staff Primary Care Provider Referring Provider Specialty: Internal Medicine Address: [address] [place] [address], [address] Email: Visit Number Visit Number 2 Discharge Summary PT-OP-B Current Condition Start: 01/31/23 17:07 Freq: Status: Active Protocol: Document 02/05/23 14:18 AM (Rec: 02/05/23 17:03 AM [id number]) Current Condition History of Current Condition Onset Date 2 months Current Complaints mild R shoulder pain. History of Current Condition Pt reports that he woke up 1 morning and had a hard time moving his arm. Pt reports that he has difficulty with shoulder extension. Pt reports that he prefers to sleep on his R and is R UE dominant. Pt had a steroid injection and reports that it has helped significantly. Prior Treatments and Tests X-ray showed arthritis per pt report, steroid injection at R shoulder PT-OP-C Subjective Start: 01/31/23 17:07 Freq: Status: Active Protocol: Document 02/05/23 14:18 AM (Rec: 02/05/23 17:03 AM [id number]) OP-PT Subjective Patient Comments Patient Comments Pt reports that he helped his sister move over the weekend and that seemed to flare his shoulder up a bit. PT-OP-K Range of Motion Start: 01/31/23 17:07 Freq: Status: Active Protocol: Document 02/01/23 13:30 AM (Rec: 02/01/23 18:26 AM [id number]) Shoulder Goniometric Range of Motion Shoulder Left Passive Flexion 150 Abduction 160 External Rotation at 45 degrees 88 Abduction Internal Rotation 80 Right Passive Flexion 132 Abduction 140 External Rotation at 45 degrees 60 Abduction Internal Rotation 70 Left Active Flexion 132 Extension 60 Abduction 135 Internal Rotation Behind Back (text) T10 Comments Abd in scaption range ER Aply: T2 Right Active Testing Position Supine Flexion 110 Extension 40 Abduction 135 Internal Rotation Behind Back (text) L1 Comments abd in scaption range ER Aply: T2 PT-OP-L Special Tests Start: 01/31/23 17:07 Freq: Status: Active Protocol: Document 02/01/23 13:30 AM (Rec: 02/01/23 18:26 AM [id number]) Special Tests Shoulder Special Tests Elevation Impingement Test Results + on R Empty Can Test Results + on R PT-OP-M Strength Start: 01/31/23 17:07 Freq: Status: Active Protocol: Document 02/01/23 13:30 AM (Rec: 02/01/23 18:26 AM [id number]) Shoulder Strength Shoulder Manual Muscle Testing Left Flexion 4- Good- Extension 4- Good- Abduction (C5) 4- Good- External Rotation 4- Good- Internal Rotation 4- Good- Right Flexion 4- Good- Extension 4- Good- Abduction (C5) 4- Good- External Rotation 4- Good- Internal Rotation 4- Good- Elbow/Forearm Strength Elbow and Forearm Manual Muscle Testing Right Flexion (C6) 4- Good- Extension (C7) 4- Good- Left Flexion (C6) 4- Good- Extension (C7) 4- Good- PT-OP-T Assessment and Plan Start: 01/31/23 17:07 Freq: Status: Active Protocol: Document 03/08/23 17:21 [facility] (Rec: 03/08/23 17:21 [facility] [id number]) Physical Therapy Assessment Goals HEP Jail Goal (LTG) Pt independent with HEP. LTG Duration 03/01/23 Function Impairment Pt with reported difficulty reaching behind his back with ADLs Jail Goal (LTG) Pt to report decreased pain and improved function with reaching behind back (ext and MR) for ADLs LTG Duration 03/01/23 ROM Impairment Pt with limitations with R AROM Jail Goal (LTG) Pt with 10 deg improvement in flex and abd AROM. LTG Duration 03/01/23 Assessment Summary Assessment Pt no showed appt on 03/07 and cancelled 2 prior to this. At this time, DC d/t noncompliance and POC is . VM left re: this and pt informed to call provider for new referral if it is needed. Physical Therapy Plan Discharge Physical Therapy Discharge Reasons No Longer Attending PT
== END 2023-03-14 15:01 | disposition home or self-care (01) ==
LOC: PHYS 14:15
PROVIDERS: PCP Internal Medicine; Referring Provider Internal Medicine; Visit Provider Internal Medicine
DX: M25.511 Pain in right shoulder (principal)
CPT/HCPCS: 97110; 97140; 97161

== ENCOUNTER 2023-02-23 04:51 | Emergency (ER) | payer MEDICARE, SELFPAY ==
[2023-02-23 05:00] VITALS: BP 200/91; PULSE 79; RESP 18; TEMP 36.6; O2SAT 99; BMI 26.6
--- NOTE | 2023-02-23 05:15 | ED_ITS ---
HPI - Extremity Injury (Lower) General Chief Complaint: Extremity Injury, Lower Stated Complaint: infected rt toe, diabetic Time Seen by Provider: 02/23/23 04:59 Source: patient Mode of arrival: Ambulatory History of Present Illness HPI Narrative: 67-year-old male with history of prediabetes presents for right great toe pain. Several weeks ago he dropped a heavy object on his toe and since then it has been painful. He noticed a black spot underneath the toenail and is concerned about possible infection. Related Data Home Medications Medication Instructions Recorded Confirmed aspirin 325 mg tablet 325 mg PO QPM 05/01/19 05/01/19 carvedilol 6.25 mg tablet 6.25 mg PO BID 05/01/19 05/01/19 cholecalciferol (vitamin D3) 50 2,000 unit PO QPM 05/01/19 05/01/19 mcg (2,000 unit) tablet dicyclomine 10 mg capsule 10 mg PO QID PRN abd pain 05/01/19 05/01/19 duloxetine 20 mg capsule,delayed 20 mg PO QPM 05/01/19 05/01/19 release erythromycin 250 mg tablet 250 mg PO QID PRN gastroparesis 05/01/19 05/01/19 gabapentin 100 mg capsule 400 mg PO TID 05/01/19 05/01/19 isosorbide mononitrate 30 mg 30 mg PO QPM 05/01/19 05/01/19 tablet,extended release 24 hr levothyroxine 125 mcg tablet 125 mcg PO QPM 05/01/19 05/01/19 lisinopril 5 mg tablet 5 mg PO QPM 05/01/19 05/01/19 metformin 500 mg tablet 500 mg PO BID 05/01/19 05/01/19 mupirocin 2 % topical ointment 1 applic topical BID PRN Rash 05/01/19 05/01/19 nitroglycerin 0.4 mg sublingual 0.4 mg sublingual Q5-15M PRN Chest 05/01/19 05/01/19 tablet Pain pantoprazole 40 mg tablet,delayed 40 mg PO QPM 05/01/19 05/01/19 release vitamin B complex (B-Complex 1 tab PO QPM 05/01/19 05/01/19 tablet) Allergies Allergy/AdvReac Type Severity Reaction Status Date / Time gemfibrozil Allergy Verified 01/25/20 11:04 Review of Systems Review of Systems Narrative: Negative except as noted above Patient History Social History Smoking Status: Former smoker Smoking Status: Former smoker alcohol intake frequency: holidays/special occasions only Substance Use Type: marijuana Exam Initial Vital Signs Initial Vital Signs: Vital Signs Temperature 98 F 02/23/23 05:00 Pulse Rate 79 02/23/23 05:00 Respiratory Rate 18 02/23/23 05:00 Blood Pressure 200/91 H 02/23/23 05:00 Pulse Oximetry 99 02/23/23 05:00 Oxygen Delivery Method Room Air 02/23/23 05:00 Const: Awake, alert, no acute distress, nontoxic appearing Cardiac: regular rate, regular rhythm RESP: unlabored, clear bilaterally, no wheezing MSK: dark purple spot under R great toe. No naildeformity, no swelling Skin: Warm, Dry, intact, no rashes Neuro: AO x3, CN II-XII grossly intact, moves all extremities Course Course Course Narrative: Toenail pain, patient is concerned that he has evolving infection. The area under the the nailbed appears to be more of a hematoma, however trephination of the nail bed was obtained without return of blood. X-ray initial report showed cortical irregularity that could be osteomyelitis. After discussion with the radiologist and informing them of the remote history of trauma they stated that in the context of trauma this cortical irregularity is much more likely to be a healing fracture than osteomyelitis. Patient was counseled of imaging findings, recommended Tylenol and Motrin as needed for pain and since he is technically a prediabetic it would be useful to follow up with a psychiatric cns. He will speak to his primary care doctor about referral to Podiatry. Orders Ordered: Discontinued Medications Acetaminophen (Acetaminophen 325 Mg Tablet) 650 mg PO Q4H PRN PRN Reason: Fever/Mild Pain (1-3) Hydrocodone Bitart/Acetaminophen (Hydrocodone/Acet 5/325 Tablet) 1 tab PO NOW ONE Stop: 02/23/23 05:29 Last Admin: 02/23/23 05:36 Dose: 1 tab Documented By: MILA Bacitracin (Bacitracin Oint 0.9 Gm Pckt) 1 applic TOP NOW ONE Stop: 02/23/23 05:30 Last Admin: 12/08/23 05:38 Dose: 1 applic Documented By: AP Vital Signs Vital signs: Vital Signs - 8 hr 02/23/23 05:00 Temperature 98 F Pulse Rate 79 Respiratory Rate 18 Blood Pressure 200/91 H Pulse Oximetry 99 Oxygen Delivery Method Room Air Discharge Plan Departure Patient Disposition: Home Clinical Impression: Pain in toe, Fracture of toe Instructions: DI for Toe Fracture Prescriptions: No Action metformin 500 mg Tablet 500 mg PO BID Rx Instructions: w/ meals carvedilol 6.25 mg Tablet 6.25 mg PO BID aspirin 325 mg Tablet 325 mg PO QPM isosorbide mononitrate 30 mg Tablet Extended Release 24 Hr 30 mg PO QPM erythromycin 250 mg Tablet 250 mg PO QID PRN (Reason: gastroparesis) pantoprazole 40 mg Tablet,Delayed Release (Dr/Ec) 40 mg PO QPM levothyroxine 125 mcg Tablet 125 mcg PO QPM nitroglycerin 0.4 mg Tablet, Sublingual 0.4 mg SUBLINGUAL Q5-15M PRN (Reason: Chest Pain) vitamin B complex [B-Complex] Tablet 1 tab PO QPM lisinopril 5 mg Tablet 5 mg PO QPM mupirocin 2 % Ointment 1 applic TOPICAL BID PRN (Reason: Rash) gabapentin 100 mg Capsule 400 mg PO TID dicyclomine 10 mg Capsule 10 mg PO QID PRN (Reason: abd pain) duloxetine 20 mg Capsule,Delayed Release(Dr/Ec) 20 mg PO QPM cholecalciferol (vitamin D3) 2,000 unit Tablet 2,000 unit PO QPM Referrals: Hafsa Ramsey MD [Primary Care Provider] - Stand Alone Forms: Patient Portal/API
--- NOTE | 2023-02-23 05:15 | DI.RAD.S_ITS ---
PROCEDURE: XR TOE RT MIN 2V INDICATIONS: great toe pain/injury TECHNIQUE: 3 views of the right great toe(s) acquired. COMPARISON: None. FINDINGS: Bones: No fractures or dislocations. No suspicious bony lesions. Soft tissues: No suspicious soft tissue densities. IMPRESSION: No acute radiographic findings. If pain persists, followup imaging in 5-7 days is recommended to exclude occult fracture. Dictated by: Cha Del Cid M.D. on 02/23/2023 at 8:29 Approved by: Cha Del Cid M.D. on 02/23/2023 at 8:33
[2023-02-23] MEDS: HYDROCODONE/ACET 5/325 TABLET 1 TAB PO (05:36)
[2023-02-23] MEDS: BACITRACIN OINT 0.9 GM PCKT 1 APPLIC TOP (05:38)
[2023-02-23 07:11] VITALS: BP 144/86; PULSE 88; RESP 18; TEMP 36.6; O2SAT 97
== END 2023-02-23 07:12 | disposition home or self-care (01) ==
PROVIDERS: Emergency Provider Emergency Medicine; PCP Internal Medicine
DX: M79.674 Pain in right toe(s) (principal); W20.8XXA Other cause of strike by thrown, projected or falling object, initial encounter
CPT/HCPCS: 73660; 99283

== ENCOUNTER 2023-02-25 12:07 | Emergency (ER) | payer MEDICARE, SELFPAY ==
[2023-02-25 12:16] VITALS: BP 176/100; PULSE 81; RESP 16; TEMP 37.1; O2SAT 97; BMI 26.6
--- NOTE | 2023-02-25 12:26 | PC.NURSE ---
provider at bedside for primary eval. pt awake, alert, rash on torso and back, reports burning, airway patent. rr even, unlabored.
--- NOTE | 2023-02-25 12:32 | ED_ITS ---
HPI - Skin/Abscess/Foreign Bdy <Josefina Torres PA-C - Last Filed: 02/25/23 14:13> General Chief complaint: Skin/Abscess/Foreign Body Stated complaint: rash on upper body and upper legs Time Seen by Provider: 02/25/23 12:23 Source: patient Mode of arrival: Ambulatory Limitations: no limitations History of Present Illness HPI narrative: 67-year-old male prediabetic presents with concern for a rash on his body. Patient states it started yesterday he is not sure exactly when started on his lower legs and is affecting all of his legs but then today he noticed it was on his upper body/torso as well. He states the rash is somewhat burning more than it is itchy. Currently it is most bothersome on his torso. Other than feeling a little fatigued the last couple of days he says he has been in his usual state of health. He does acknowledge he is had a little bit less appetite last few days but denies any recent illness change in bowel habit, nausea, vomiting, URI symptoms, fevers, new medications change in medications stopping any medications or any other symptoms. He states he has had a drug rash reaction before to medication but this does not look the same. He can not think of anything different in his environment such as pets or new detergents he did use a new laundry detergent that was a few weeks ago and he only used it once. He did have nail trephination of his right great toenail a few days prior as he had a bruise or blood collection underneath it that had been present for over a week after dropping something on his toe. He was seen in this ER for that and wonders if this could be connected. He does not feel that his toe is infected and it has not been painful, red or swollen. Patient does acknowledge she has been drinking a lot of water for the last few weeks. Related Data Home Medications Medication Instructions Recorded Confirmed aspirin 325 mg tablet 325 mg PO QPM 05/01/19 05/01/19 carvedilol 6.25 mg tablet 6.25 mg PO BID 05/01/19 05/01/19 cholecalciferol (vitamin D3) 50 2,000 unit PO QPM 05/01/19 05/01/19 mcg (2,000 unit) tablet dicyclomine 10 mg capsule 10 mg PO QID PRN abd pain 05/01/19 05/01/19 duloxetine 20 mg capsule,delayed 20 mg PO QPM 05/01/19 05/01/19 release erythromycin 250 mg tablet 250 mg PO QID PRN gastroparesis 05/01/19 05/01/19 gabapentin 100 mg capsule 400 mg PO TID 05/01/19 05/01/19 isosorbide mononitrate 30 mg 30 mg PO QPM 05/01/19 05/01/19 tablet,extended release 24 hr levothyroxine 125 mcg tablet 125 mcg PO QPM 05/01/19 05/01/19 lisinopril 5 mg tablet 5 mg PO QPM 05/01/19 05/01/19 metformin 500 mg tablet 500 mg PO BID 05/01/19 05/01/19 mupirocin 2 % topical ointment 1 applic topical BID PRN Rash 05/01/19 05/01/19 nitroglycerin 0.4 mg sublingual 0.4 mg sublingual Q5-15M PRN Chest 05/01/19 05/01/19 tablet Pain pantoprazole 40 mg tablet,delayed 40 mg PO QPM 05/01/19 05/01/19 release vitamin B complex (B-Complex 1 tab PO QPM 05/01/19 05/01/19 tablet) Previous Rx's Medication Instructions Recorded prednisone 20 mg tablet 40 mg (2 x 20 mg) PO DAILY 3 days 02/25/23 #6 tabs Allergies Allergy/AdvReac Type Severity Reaction Status Date / Time gemfibrozil Allergy Verified 01/25/20 11:04 Review of Systems <Josefina Torres PA-C - Last Filed: 02/25/23 14:13> Review of Systems Narrative: See HPI Patient History <Josefina Torres PA-C - Last Filed: 02/25/23 14:13> Social History Smoking Status: Former smoker Smoking Status: Former smoker alcohol intake frequency: holidays/special occasions only Substance Use Type: marijuana Exam <Josefina Torres PA-C - Last Filed: 02/25/23 14:13> Narrative Exam Narrative: GENERAL: [67] year old patient appears stated age. Well-developed patient, in mild distress. HEAD: Atraumatic. Normocephalic. EYES: Pupils equal round and reactive. Extraocular motions intact. No scleral icterus. No injection or drainage. ENT: Nose without bleeding, purulent drainage. Throat without erythema, tonsillar hypertrophy or exudate. Airway patent, patient is edentulous, no rash or oral lesions noted, there is no angioedema. NECK: Trachea midline. Non tender CARDIOVASCULAR: Regular rate and rhythm without murmurs, gallops, or rubs. RESPIRATORY: Clear to auscultation. Breath sounds equal bilaterally. No wheezes, rales, or rhonchi. GASTROINTESTINAL: Abdomen soft, non-tender, nondistended. EXTREMITIES: See SKIN No edema or joint tenderness. BACK: See SKIN Nontender without deformity or crepitance. No flank tenderness. NEURO: AOx3. SKIN: There is a slightly erythematous scattered maculopapular rash with patches 0.5cm to 2cm in size on the patient's lower extremities and torso; the rash on the torso is most prominent on the patient's back where it is also most erythematous rash affects the body equally bilaterally. It spares the palms and soles as well as face/neck. The rash has some scaling/dry skin present, has irregular borders and no fluctuance or fluid collection/pustules. No other rash or erythema of visible areas. There are no splinter hemorrhages or janeway lesions. Initial Vital Signs Initial Vital Signs: Vital Signs Temperature 98.8 F 02/25/23 12:16 Pulse Rate 81 02/25/23 12:16 Respiratory Rate 16 02/25/23 12:16 Blood Pressure 176/100 H 02/25/23 12:16 Pulse Oximetry 97 02/25/23 12:16 Oxygen Delivery Method Room Air 02/25/23 12:16 <India Ann DO - Last Filed: 02/27/23 09:45> Initial Vital Signs Initial Vital Signs: Vital Signs Temperature 98.8 F 02/25/23 12:16 Pulse Rate 81 02/25/23 12:16 Respiratory Rate 16 02/25/23 12:16 Blood Pressure 176/100 H 02/25/23 12:16 Pulse Oximetry 97 02/25/23 12:16 Oxygen Delivery Method Room Air 02/25/23 12:16 Course <Josefina Torres PA-C - Last Filed: 02/25/23 14:13> Orders Ordered: Discontinued Medications Acetaminophen (Acetaminophen 325 Mg Tablet) 650 mg PO NOW ONE Stop: 02/25/23 12:41 Last Admin: 02/25/23 12:49 Dose: 650 mg Documented By: GERARDO Methylprednisolone (Methylprednisolone 125 Mg/2 Ml Vial) 125 mg IV NOW ONE Stop: 02/25/23 13:02 Last Admin: 02/25/23 13:24 Dose: 125 mg Documented By: GERARDO Vital Signs Vital signs: Vital Signs - 8 hr 02/25/23 12:16 Temperature 98.8 F Pulse Rate 81 Respiratory Rate 16 Blood Pressure 176/100 H Pulse Oximetry 97 Oxygen Delivery Method Room Air <India Ann DO - Last Filed: 02/27/23 09:45> Orders Ordered: Discontinued Medications Acetaminophen (Acetaminophen 325 Mg Tablet) 650 mg PO NOW ONE Stop: 02/25/23 12:41 Last Admin: 02/25/23 12:49 Dose: 650 mg Documented By: GERARDO Methylprednisolone (Methylprednisolone 125 Mg/2 Ml Vial) 125 mg IV NOW ONE Stop: 02/25/23 13:02 Last Admin: 02/25/23 13:24 Dose: 125 mg Documented By: GERARDO Vital Signs Vital signs: Vital Signs - 8 hr 02/25/23 12:16 Temperature 98.8 F Pulse Rate 81 Respiratory Rate 16 Blood Pressure 176/100 H Pulse Oximetry 97 Oxygen Delivery Method Room Air MDM - Skin/Abscess/Foreign Bdy <Josefina Torres PA-C - Last Filed: 02/25/23 14:13> Differential Diagnosis Differential diagnosis: Likely viral exanthem, urticaria, allergic reaction to drug, eczema, contact dermatitis and other (bacterial skin rash) Medical Records Attestation: I reviewed the patient's medical records. Lab Data Attestation: I reviewed the patient's lab results. 02/25/23 12:38 02/25/23 12:38 Labs: Lab Results 02/25/23 Range/Units 12:38 WBC 8.2 (4.5-11.0) X10^3/uL RBC 4.70 (4.5-5.9) X10^6/uL Hgb 13.8 (13.5-17.5) g/dL Hct 39.9 L (41-53) % MCV 84.9 (80-100) fL MCH 29.4 (26-34) PG MCHC 34.7 (30-36) % RDW 14.4 (11.6-14.8) % Plt Count 349 (150-400) X10^3/uL Neut % (Auto) 69.9 (50-75) % Lymph % (Auto) 15.7 L (25-40) % Mower % (Auto) 12.1 (3-14) % Eos % (Auto) 1.1 L (2-4) % Baso % (Auto) 1.2 (0-2) % Neut # (Auto) 5700 (2014-0569) /uL Lymph # (Auto) 1300 (3931-1836) /uL Mower # (Auto) 1000 H (0-900) /uL Eos # (Auto) 100 (0-450) /uL Baso # (Auto) 100 (0-100) /uL Sodium 127 L (137-145) mmol/L Potassium 4.0 (3.4-5.1) mmol/L Chloride 93 L (98-107) mmol/L Carbon Dioxide 21 L (22-32) mmol/L BUN 14 (9-20) mg/dL Creatinine 0.84 (0.66-1.25) mg/dL Estimated GFR > 60 (>60) mL/min BUN/Creatinine Ratio 16.7 (6-22) Glucose 116 H (80-110) mg/dL Calcium 10.0 (8.4-10.2) mg/dL Total Bilirubin 0.9 (0.2-1.3) mg/dL AST 35 (17-59) IU/L ALT 28 (<50) IU/L Alkaline Phosphatase 82 (38-126) U/L C-Reactive Protein 1.4 H (<1.0) mg/dL Total Protein 8.5 H (6.3-8.2) g/dL Albumin 4.8 (3.5-5.0) g/dL Globulin 3.7 (1.7-4.1) g/dL Albumin/Globulin Ratio 1.3 (1.0-2.8) Treatment and disposition Shared decision making:: Shared decision-making was used to determine the patient's plan of care and evaluation in the emergency department MDM Narrative Medical decision making narrative: This is a generally well-appearing 67-year-old male who has history of prediabetes who presents today to the ER with concern for a rash that began sometime yesterday on his extremities and moved to his torso primarily affecting his back. Rash is possibly consistent with a viral exanthem or drug reaction however he has not had any change to medications or new medications recently. He has had some fatigue the last few days and given his age history and extent of rash labs are obtained to include CBC CMP as well as CRP. Coags are not obtained as the rash is not consistent with purpura or vasculitic rash. Patient's CRP returned slightly elevated at 1.4, his other labs were fairly unremarkable although he does notably have hyponatremia at 127 does have a history of hyponatremia at 131 six months ago, and his hyponatremia is likely chronic to some degree. but this level today is the lowest I see on chart review. Discussed this with the patient who is a former [employer] and given that he is asymptomatic from the hyponatremia with the possible exception of his recent mild fatigue we discussed options and he is open to meeting with his PCP in the next week for a recheck and recheck of labs to re-evaluate his hyponatremia as well as cutting back slightly on his water intake which has been high in the last few weeks. Regarding his rash the patient was given Solu- Medrol 125 mg IV today in the emergency department and will continue with a oral prednisone course 40 mg for 3 days. He is counseled if his rash worsens or changes becomes blistering or his skin sloughed or he has increased pain with the rash or other symptoms of concern he should seek immediate Re-evaluation in the emergency department. 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 Patient also plans to take a home COVID test. Return precautions provided, follow-up plan discussed, all questions answered. <India Ann, DO - Last Filed: 02/27/23 09:45> Lab Data Labs: Lab Results 02/25/23 Range/Units 12:38 WBC 8.2 (4.5-11.0) X10^3/uL RBC 4.70 (4.5-5.9) X10^6/uL Hgb 13.8 (13.5-17.5) g/dL Hct 39.9 L (41-53) % MCV 84.9 (80-100) fL MCH 29.4 (26-34) PG MCHC 34.7 (30-36) % RDW 14.4 (11.6-14.8) % Plt Count 349 (150-400) X10^3/uL Neut % (Auto) 69.9 (50-75) % Lymph % (Auto) 15.7 L (25-40) % Mower % (Auto) 12.1 (3-14) % Eos % (Auto) 1.1 L (2-4) % Baso % (Auto) 1.2 (0-2) % Neut # (Auto) 5700 (3679-7484) /uL Lymph # (Auto) 1300 (0543-5179) /uL Mower # (Auto) 1000 H (0-900) /uL Eos # (Auto) 100 (0-450) /uL Baso # (Auto) 100 (0-100) /uL Sodium 127 L (137-145) mmol/L Potassium 4.0 (3.4-5.1) mmol/L Chloride 93 L (98-107) mmol/L Carbon Dioxide 21 L (22-32) mmol/L BUN 14 (9-20) mg/dL Creatinine 0.84 (0.66-1.25) mg/dL Estimated GFR > 60 (>60) mL/min BUN/Creatinine Ratio 16.7 (6-22) Glucose 116 H (80-110) mg/dL Calcium 10.0 (8.4-10.2) mg/dL Total Bilirubin 0.9 (0.2-1.3) mg/dL AST 35 (17-59) IU/L ALT 28 (<50) IU/L Alkaline Phosphatase 82 (38-126) U/L C-Reactive Protein 1.4 H (<1.0) mg/dL Total Protein 8.5 H (6.3-8.2) g/dL Albumin 4.8 (3.5-5.0) g/dL Globulin 3.7 (1.7-4.1) g/dL Albumin/Globulin Ratio 1.3 (1.0-2.8) Discharge Plan Departure Patient Disposition: Home Clinical Impression: Rash and nonspecific skin eruption, Hyponatremia Activity Restrictions/Additional Instructions: *You have been diagnosed with [rash, hyponatremia] *What to do: *Please continue to take your regular medications as directed. [1 ] New medication prescriptions sent to your pharmacy: [Prednisone] [ ] New medication written as a paper prescription [ ] No new medications given *Please follow up with your primary care provider in 2-3 days, call for an appointment. Let them know you were seen in the Emergency Department and that we ask that you be seen in follow up. We will electronically transmit a record of today's note if your PCP is in our system. Your labs today included CBC and CMP as well as CRP which is an inflammatory marker. Most of your labs looking fine however your sodium levels were low at 127 as we discussed. I do not think you are symptomatic from this today although it is possible that the fatigue had recently could be related to this. And it is important that your levels do not continue to get lower as this can certainly cause worse symptoms. I do want you to get rechecked soon provided that you were not having any new or worsening symptoms ideally in the next 5-7 days for a lab recheck and see your primary care provider to reassess her sodium levels. If you are starting to have any new or worsening symptoms of course you should get rechecked sooner or present to the emergency department. Regarding your rash, I do not have a clear cause for this; at this point I do not believe it is bacterial and it is possible it is viral. As we discussed if you would like you can try doing a home COVID test although this is not necessarily a rash I would typically see with COVID although it could be a viral rash. You did mentioned you been drinking increased water recently and given your low sodium levels I would caution you to not overdo it on the water at least until you get your labs rechecked and check in with her primary care provider. We gave you Solu-Medrol in the emergency department today and I have prescribed a few days of prednisone anti- inflammatory to see if this resolves your rash symptoms and discomfort associated with it. I encourage you to take Tylenol as needed for pain as well and hopefully this will help. Please follow-up closely with your primary care provider. *If you do not have a primary care provider please contact the [facility] Resource line at [phone]. They will ask some questions about your medical history and help get you set up with a doctor in the community. *Return to Emergency Department if you should have any new, worsening or concerning symptoms, such as [fever greater than 101 F, shaking chills, worsening pain, persistent vomiting or other bothersome symptoms] Prescriptions: New prednisone 20 mg tablet 40 mg PO DAILY 3 Days Qty: 6 0RF No Action metformin 500 mg Tablet 500 mg PO BID Rx Instructions: w/ meals carvedilol 6.25 mg Tablet 6.25 mg PO BID aspirin 325 mg Tablet 325 mg PO QPM isosorbide mononitrate 30 mg Tablet Extended Release 24 Hr 30 mg PO QPM erythromycin 250 mg Tablet 250 mg PO QID PRN (Reason: gastroparesis) pantoprazole 40 mg Tablet,Delayed Release (Dr/Ec) 40 mg PO QPM levothyroxine 125 mcg Tablet 125 mcg PO QPM nitroglycerin 0.4 mg Tablet, Sublingual 0.4 mg SUBLINGUAL Q5-15M PRN (Reason: Chest Pain) vitamin B complex [B-Complex] Tablet 1 tab PO QPM lisinopril 5 mg Tablet 5 mg PO QPM mupirocin 2 % Ointment 1 applic TOPICAL BID PRN (Reason: Rash) gabapentin 100 mg Capsule 400 mg PO TID dicyclomine 10 mg Capsule 10 mg PO QID PRN (Reason: abd pain) duloxetine 20 mg Capsule,Delayed Release(Dr/Ec) 20 mg PO QPM cholecalciferol (vitamin D3) 2,000 unit Tablet 2,000 unit PO QPM Referrals: Hafsa Ramsey MD [Primary Care Provider] - Stand Alone Forms: Patient Portal/API ED Sign-out <India Ann DO - Last Filed: 02/27/23 09:45> Cosign ED Attending Ricardo Attestation: I was immediately available in the department for consultation.
[2023-02-25] MEDS: ACETAMINOPHEN 325 MG TABLET 650 MG PO (12:49)
[2023-02-25 13:03] LABS: Add Manual Diff / Slide Review NO; Basophils Absolute Auto 100 /uL (0-100); Basophils Percent Auto 1.2 % (0-2); Eosinophils Absolute Auto 100 /uL (0-450); Eosinophils Percent Auto 1.1 % (2-4); Hematocrit 39.9 % (41-53); Hemoglobin 13.8 g/dL (13.5-17.5); Lymphocytes Absolute Auto 1300 /uL (1100-4500); Lymphocytes Percent Auto 15.7 % (25-40); Mean Corpuscular HGB Conc 34.7 % (30-36); Mean Corpuscular Hemoglobin 29.4 PG (26-34); Mean Corpuscular Volume 84.9 fL (80-100); Monocytes Absolute Auto 1000 /uL (0-900); Monocytes Percent Auto 12.1 % (3-14); Neutrophils Absolute Auto 5700 /uL (1500-7000); Neutrophils Percent Auto 69.9 % (50-75); Platelet Count 349 X10^3/uL (150-400); Red Cell Distribution Width 14.4 % (11.6-14.8); White Blood Cell Count 8.2 X10^3/uL (4.5-11.0)
[2023-02-25 13:18] LABS: Alanine Aminotransferase 28 IU/L (<50); Albumin 4.8 g/dL (3.5-5.0); Albumin Globulin Ratio 1.3 (1.0-2.8); Alkaline Phosphatase 82 U/L (38-126); Aspartate Aminotransferase 35 IU/L (17-59); BUN Creatinine Ratio 16.7 (6-22); Bilirubin Total 0.9 mg/dL (0.2-1.3); Blood Urea Nitrogen 14 mg/dL (9-20); C-Reactive Protein Quant 1.4 mg/dL (<1.0); Carbon Dioxide 21 mmol/L (22-32); Chloride 93 mmol/L (98-107); Estimated Glomerular Filt Rate > 60 mL/min (>60); Globulin 3.7 g/dL (1.7-4.1); Glucose 116 mg/dL (80-110); HEMOLYSIS < 15 (0-50); Sodium 127 mmol/L (137-145); Total Protein 8.5 g/dL (6.3-8.2)
[2023-02-25] MEDS: methylPREDNISolone 125 MG/2 ML VIAL IV (13:24)
[2023-02-25 14:10] VITALS: BP 169/81; PULSE 77; RESP 18; O2SAT 98
== END 2023-02-25 14:11 | disposition home or self-care (01) ==
PROVIDERS: Emergency Provider Student in an Organized Health Care Education/Training Program; PCP Internal Medicine
DX: R21 Rash and other nonspecific skin eruption (principal); E87.1 Hypo-osmolality and hyponatremia
CPT/HCPCS: 36415; 80053; 85025; 86140; 96374; 99283; 99284; J2930

== ENCOUNTER 2023-12-31 20:32 | Observation (INO) | payer MEDICARE, SELFPAY ==
[2023-12-31] VITALS (13 sets, daily range): BP systolic 108–146; BP diastolic 52–74; PULSE 88–116; RESP 9–20; O2SAT 88–98; BMI 29.8
--- NOTE | 2023-12-31 20:47 | DI.CT.S_ITS ---
PROCEDURE: CT STROKE INDICATIONS: stroke TECHNIQUE: Noncontrast 4.5 mm thick angled axial sections acquired from the foramen magnum to the vertex, with coronal reformats. For radiation dose reduction, the following was used: automated exposure control, adjustment of mA and/or kV according to patient size. COMPARISON: [facility], CT, CT ANGIO HEAD AND NECK, 12/31/2023, 20:53. [facility], CT, CT HEAD WITHOUT CONTRAST, 11/02/2022, 13:09. FINDINGS: Image quality: Diagnostic. CSF spaces: Basal cisterns are patent. No extra-axial fluid collections. Ventricles are normal in size and shape. Brain: No midline shift. No intracranial masses or hemorrhage. Campbell-white matter interface is normal. 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 Skull and face: Calvarium and visualized facial bones are intact, without suspicious lesions. Sinuses: Visualized sinuses and mastoids are clear. IMPRESSION: No acute intracranial pathology. These findings were communicated via telephone to the ordering provider, Dr Soni, by Raz Del Rio MD on 12/31/2023 at 9:14 p.m. This study fulfills neurological imaging criteria for inclusion or exclusion of acute stroke therapies based on available published neurological imaging guidelines. Dictated by: Raz Del Rio M.D. on 12/31/2023 at 21:06 Approved by: Raz Del Rio M.D. on 12/31/2023 at 21:15
--- NOTE | 2023-12-31 20:48 | DI.CT.S_ITS ---
PROCEDURE: CT ANGIO HEAD AND NECK INDICATIONS: alt mental, confusion, difficulty finding words TECHNIQUE: After the administration of intravenous contrast, 1 mm thick sections acquired from the aortic arch through the [place] of [place]. 3-dimensional rhjeulh-yasktjfts-odqjscsvrm (MIP) and/or volume rendering reformats were acquired of the central intracranial vasculature and neck separately. For radiation dose reduction, the following was used: automated exposure control, adjustment of mA and/or kV according to patient size. COMPARISON: [facility], CT, CT STROKE, 12/31/2023, 20:53. FINDINGS: Image quality: Fair; somewhat limited due to motion artifact BRAIN: Please see the same-day CT head without contrast report for further details HEAD CT ANGIOGRAPHY: Anterior circulation: Intracranial internal carotid arteries are normal in size and flow. The flow within the paired anterior cerebral arteries is normal and symmetric. The flow within the middle cerebral arteries is normal and symmetric. The anterior communicating artery is seen. No aneurysms are seen. Posterior circulation: Visualized portions of the vertebral arteries demonstrate normal caliber, and join to form a normal appearing basilar artery. Flow within the posterior cerebral arteries is normal and symmetric. No aneurysms are seen. NECK CT ANGIOGRAPHY: Carotid system: 3 vessel aortic arch comprised of the right brachiocephalic artery, left common carotid, and left subclavian artery. The origins of the common carotid arteries appear patent. The common carotid arteries demonstrate normal caliber and courses. The bifurcation regions are both widely patent. The internal carotid arteries demonstrate normal calibers and courses. Posterior circulation: The origins of the vertebral arteries both appear widely patent. The more superior extracranial portions of both vertebral arteries also demonstrate normal courses and calibers. They join to form a normal appearing basilar artery. Soft tissues: Status post prior right hemithyroidectomy. Enlarged main pulmonary arterial trunk diameter up to 3.2 cm. Severe left anterior descending coronary artery calcifications. Bones: No suspicious bony lesions. Visualized cervical spine appears normally aligned. IMPRESSION: 1. No large vessel occlusion, dissection, or aneurysm in the visualized head and neck vasculature. 2. Enlarged main pulmonary arterial trunk diameter, suggestive of pulmonary arterial hypertension. 3. Severe left anterior descending coronary artery calcification. Any quantitative measurements of stenosis were performed using NASCET criteria. These findings were communicated via telephone to the ordering provider, Dr Soni, by Raz Del Rio MD on 12/31/2023 at 9:14 p.m. Dictated by: Raz Del Rio M.D. on 12/31/2023 at 21:15 Approved by: Raz Del Rio M.D. on 12/31/2023 at 21:18
[2023-12-31 20:55] LABS: Hematocrit 38.9 % (41-53); Hemoglobin 13.3 g/dL (13.5-17.5); Mean Corpuscular HGB Conc 34.2 % (30-36); Mean Corpuscular Hemoglobin 29.3 PG (26-34); Mean Corpuscular Volume 85.8 fL (80-100); Platelet Count 328 X10^3/uL (150-400); Red Blood Cell Count 4.53 X10^6/uL (4.5-5.9); Red Cell Distribution Width 13.2 % (11.6-14.8); White Blood Cell Count 18.5 X10^3/uL (4.5-11.0)
[2023-12-31 20:59] LABS: Add Manual Diff / Slide Review YES
--- NOTE | 2023-12-31 21:00 | PC.NURSE ---
This nurse in patient's room assessing patient. Patient having a hard time staying awake. Patient needs to be constantly told to open their eyes and take deep breaths as patient was taking shallow breaths. RR 8 BPM. Patient needed to be put oxygen 5L via oximask. Dr. Soni notified. RT notified.When patient wakes up, he is able to follow directions and responds appropriately. 2108: Dr. Soni in room assessing patient. verbal order for 0.4mg narcan IV push. 2110: 0.4mg Narcan IV push administered. 2112: patient AAO/4 answering questions appropriately.
[2023-12-31 21:01] LABS: INR 1.1 (0.9-1.3); Prothrombin Time 12.2 SECONDS (9.4-12.5)
[2023-12-31 21:03] LABS: PTT Partial Thromboplastin Tim 33 SECONDS (25.1-36.5)
--- NOTE | 2023-12-31 21:04 | DI.RAD.S_ITS ---
PROCEDURE: XR CHEST 1V INDICATIONS: Possible stroke TECHNIQUE: One view of the chest was acquired. COMPARISON: [facility], CR, XR CHEST 1V, 08/25/2019, 22:17. [facility], CR, XR CHEST 1V, 05/23/2019, 6:39. [facility], CR, XR CHEST 1V, 05/01/2019, 14:12. FINDINGS: Surgical changes and devices: Right medial supraclavicular surgical clips. Lungs and pleura: Lungs are clear. No pleural effusions or pneumothorax. Mediastinum: Mediastinal contours appear normal. Heart size is normal. Bones and chest wall: No suspicious bony lesions. Overlying soft tissues appear unremarkable. IMPRESSION: No acute cardiopulmonary abnormality is seen. Dictated by: Raz Del Rio M.D. on 12/31/2023 at 21:19 Approved by: Raz Del Rio M.D. on 12/31/2023 at 21:19
--- NOTE | 2023-12-31 21:04 | EKG_ITS ---
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
[2023-12-31] MEDS: NALOXONE 0.4 MG/ML VIAL IV (21:11)
[2023-12-31 21:22] LABS: Neutrophils Absolute Manual 14800 /uL (3000-5900); RBC Morphology Normal Morphology; Total Cells Counted 100
[2023-12-31 21:23] LABS: Alanine Aminotransferase 32 IU/L (<50); Albumin 4.8 g/dL (3.5-5.0); Albumin Globulin Ratio 1.3 (1.0-2.8); Alkaline Phosphatase 70 U/L (38-126); Aspartate Aminotransferase 84 IU/L (17-59); Bilirubin Total 0.8 mg/dL (0.2-1.3); Blood Urea Nitrogen 24 mg/dL (9-20); Calcium 10.4 mg/dL (8.4-10.2); Carbon Dioxide 26 mmol/L (22-32); Chloride 94 mmol/L (98-107); Estimated Glomerular Filt Rate > 60 mL/min (>60); Globulin 3.6 g/dL (1.7-4.1); Glucose 127 mg/dL (80-110); HEMOLYSIS 16 (0-50); Magnesium 1.5 mg/dL (1.6-2.3); Potassium 4.6 mmol/L (3.4-5.1); Sodium 132 mmol/L (137-145); Total Protein 8.4 g/dL (6.3-8.2)
--- NOTE | 2023-12-31 21:29 | PC.NURSE ---
Patient on room air, breathing even and unlabored, RR 14.
[2023-12-31 21:35] LABS: Troponin I 0.017 ng/mL (0.01-0.034)
[2023-12-31 21:43] LABS: Creatine Kinase 2401 U/L (55-170)
[2023-12-31] MEDS: SODIUM CHLORIDE 0.9% 1,000 ML 1000 ML IV (22:00)
--- NOTE | 2023-12-31 22:28 | ED.NEUROSD ---
HPI - Neuro Symptoms/Deficit General Chief Complaint: Neuro Symptoms/Deficit Stated Complaint: poss stroke Time Seen by Provider: 12/31/23 21:23 Source: patient and other Mode of arrival: Ambulatory History of Present Illness HPI Narrative: Patient 68-year-old male presents today as a code stroke last known well was 630. He lives with a roommate she has been with him all day. She has been trying to help clean his room pain to his room. She reports that he was within is normal self she gave him all of his pills from a bag and then started having some word trouble finding issue. He is very confused mumbling not quite making any sense. She noticed some diaphoresis and some shaking as well. No facial droop no weakness he ate walked in. I was called to room after head CT because he became hypoxic. Patient was sleeping became unarousable he is pinpoint pupils. It took him awhile with a sternal rub to wake up in the knee quickly fell back asleep. He was given Narcan which point he responded. Patient was confused but seems a bit better now. He is moving all extremities no significant facial droop denies any drugs. He reports he took his Prozac in his gabapentin a little bit later than normal. Sometimes he says his medications do this for him. Related Data Home Medications Medication Instructions Recorded Confirmed aspirin 325 mg tablet 325 mg PO QPM 05/01/19 05/01/19 carvedilol 6.25 mg tablet 6.25 mg PO BID 05/01/19 05/01/19 cholecalciferol (vitamin D3) 50 2,000 unit PO QPM 05/01/19 05/01/19 mcg (2,000 unit) tablet dicyclomine 10 mg capsule 10 mg PO QID PRN abd pain 05/01/19 05/01/19 duloxetine 20 mg capsule,delayed 20 mg PO QPM 05/01/19 05/01/19 release erythromycin 250 mg tablet 250 mg PO QID PRN gastroparesis 05/01/19 05/01/19 gabapentin 100 mg capsule 400 mg PO TID 05/01/19 05/01/19 isosorbide mononitrate 30 mg 30 mg PO QPM 05/01/19 05/01/19 tablet,extended release 24 hr levothyroxine 125 mcg tablet 125 mcg PO QPM 05/01/19 05/01/19 lisinopril 5 mg tablet 5 mg PO QPM 05/01/19 05/01/19 metformin 500 mg tablet 500 mg PO BID 05/01/19 05/01/19 mupirocin 2 % topical ointment 1 applic topical BID PRN Rash 05/01/19 05/01/19 nitroglycerin 0.4 mg sublingual 0.4 mg sublingual Q5-15M PRN Chest 05/01/19 05/01/19 tablet Pain pantoprazole 40 mg tablet,delayed 40 mg PO QPM 05/01/19 05/01/19 release vitamin B complex (B-Complex 1 tab PO QPM 05/01/19 05/01/19 tablet) Allergies Allergy/AdvReac Type Severity Reaction Status Date / Time gemfibrozil Allergy Verified 01/25/20 11:04 Patient History Social History Smoking Status: Former smoker Smoking Status: Former smoker alcohol intake frequency: holidays/special occasions only Substance Use Type: marijuana Exam Initial Vital Signs Initial Vital Signs: Vital Signs Pulse Rate 116 H 12/31/23 20:44 Respiratory Rate 20 12/31/23 20:44 Blood Pressure 133/74 12/31/23 20:44 Pulse Oximetry 92 12/31/23 20:44 Oxygen Delivery Method Room Air 12/31/23 20:44 GENERAL: Alert 68-year-old male and in no acute distress. HEENT: Head atraumatic,EOMI, pupils reactive, face symmetric, moist mucous membranes CARDIOVASCULAR: Regular rate and rhythm without murmurs, rubs or gallops. RESPIRATORY: Breath sounds equal bilaterally, no wheezes rales or rhonchi. ABDOMEN: Soft, nontender. Normoactive bowel sounds all 4 quadrants. No guarding or rebound. EXTREMITIES: Normal range of motion, no clubbing or edema. Neurovascularly intact NEUROLOGICAL: Alert and oriented x2.Normal gait and speech. 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 Scores NIH Stroke Scale Level of Conciousness: Alert, keenly responsive Ask month/age: Answers one question correctly, intubated follow commands Open/close eyes, close hand: Performs both tasks correctly Best gaze horizontal: Normal Visual munoz: No visual loss Facial palsy: Normal symetrical movement Left arm drift: No drift for full 10 sec Right arm drift: No drift for full 10 sec Left leg drift: No drift for full 5 sec Right leg drift: No drift for full 5 sec Limb ataxia: Absent Sensory on face/arms/legs: Normal, no sensory loss Best language: No aphasia, normal Dysarthria: Normal Extinction or inattention: No abnormality Total NIH Stroke scale score: 1 Course Orders Ordered: ED Orders 12/31/23 20:42 Comprehensive Metabolic Panel Stat Magnesium Stat Troponin & CK Cardiac Panel Stat 12/31/23 20:47 CT Stroke Stat Complete Blood Count AUTO DIFF Stat PTT Partial Thromboplastin Brice Stat Prothrombin Time INR Stat 12/31/23 20:48 CT angio head and neck Stat 12/31/23 21:04 XR chest 1V Stat EKG-12 Lead Stat 12/31/23 22:04 Respiratory Panel (Film Array) Stat 12/31/23 23:46 Urinalysis and Microscopic Stat Urine Drug Screen, Rapid Stat 01/01/24 00:29 Troponin & CK Cardiac Panel Stat 01/01/24 01:49 Acetaminophen Stat ETOH [Ethanol (ETOH)] Stat Salicylate Stat Sodium Chloride (Normal Saline 0.9%) 1,000 mls @ 100 mls/hr IV CONT SHARAD Last Admin: 01/01/24 01:37 Dose: 100 mls/hr Documented By: PARKER Naloxone HCl (Naloxone 0.4 Mg/Ml Vial) 0.4 mg IV PRN PRN PRN Reason: Opiate Reversal Last Admin: 01/01/24 01:09 Dose: 0.4 mg Documented By: Admin: 12/31/23 21:11 Dose: 0.4 mg Documented By: PARKER Ondansetron HCl (Ondansetron 4 Mg/2 Ml Inj) 4 mg IV NOW PRN PRN Reason: Nausea And Vomiting Ondansetron HCl (Ondansetron 4 Mg Odt) 4 mg SL NOW PRN PRN Reason: Nausea And Vomiting Discontinued Medications Sodium Chloride (Normal Saline 0.9%) 1,000 mls @ 1,000 mls/hr IV BOLUS ONE Stop: 12/31/23 22:53 Last Infusion: 12/31/23 22:53 Dose: Infused Documented By: Admin: 12/31/23 22:00 Dose: 1,000 mls/hr Documented By: PARKER Vital Signs Vital signs: Vital Signs - 8 hr 12/31/23 20:44 12/31/23 20:45 12/31/23 20:57 Pulse Rate 116 H 104 H 96 H Respiratory Rate 20 12 9 L Blood Pressure 133/74 Pulse Oximetry 92 Oxygen Delivery Method Room Air Oxygen Flow Rate 12/31/23 20:57 12/31/23 21:00 12/31/23 21:00 Pulse Rate 95 H Respiratory Rate 12 Blood Pressure 115/59 L 108/52 L Pulse Oximetry 88 L Oxygen Delivery Method Room Air Oxygen Flow Rate 12/31/23 21:02 12/31/23 21:28 12/31/23 21:30 Pulse Rate 94 H Respiratory Rate 14 Blood Pressure 144/69 H Pulse Oximetry 93 98 Oxygen Delivery Method Oximask Room Air Oxygen Flow Rate 5 12/31/23 21:30 12/31/23 22:00 12/31/23 22:00 Pulse Rate 91 H 88 Respiratory Rate 11 L 12 Blood Pressure 122/63 Pulse Oximetry 95 95 Oxygen Delivery Method Room Air Room Air Oxygen Flow Rate 12/31/23 22:30 12/31/23 23:00 12/31/23 23:00 Pulse Rate 98 H 88 Respiratory Rate 14 13 Blood Pressure 138/66 Pulse Oximetry 93 Oxygen Delivery Method Room Air Oxygen Flow Rate 12/31/23 23:24 12/31/23 23:24 12/31/23 23:25 Pulse Rate 99 H Respiratory Rate 16 Blood Pressure 146/70 H Pulse Oximetry 89 L 95 Oxygen Delivery Method Room Air Oximask Oxygen Flow Rate 2 12/31/23 23:30 12/31/23 23:30 01/01/24 00:00 Pulse Rate 93 H 87 Respiratory Rate 12 10 L Blood Pressure 124/60 Pulse Oximetry 98 93 Oxygen Delivery Method Oximask Oximask Oxygen Flow Rate 2 2 01/01/24 00:00 01/01/24 00:30 01/01/24 00:30 Pulse Rate 88 Respiratory Rate 11 L Blood Pressure 124/62 114/58 L Pulse Oximetry 95 Oxygen Delivery Method Oximask Oxygen Flow Rate 2 01/01/24 01:00 01/01/24 01:00 Pulse Rate 85 Respiratory Rate 9 L Blood Pressure 116/59 L Pulse Oximetry 93 Oxygen Delivery Method Oximask Oxygen Flow Rate 2 [facility] Neuro Symptoms/Deficit Lab Data 12/31/23 20:47 12/31/23 20:42 Labs: Lab Results 12/31/23 12/31/23 12/31/23 Range/Units 20:42 20:47 22:04 WBC 18.5 H (4.5-11.0) X10^3/uL RBC 4.53 (4.5-5.9) X10^6/uL Hgb 13.3 L (13.5-17.5) g/dL Hct 38.9 L (41-53) % MCV 85.8 (80-100) fL MCH 29.3 (26-34) PG MCHC 34.2 (30-36) % RDW 13.2 (11.6-14.8) % Plt Count 328 (150-400) X10^3/uL Neut % (Auto) Not Reportable Lymph % (Auto) Not Reportable [place] % (Auto) Not Reportable Eos % (Auto) Not Reportable Baso % (Auto) Not Reportable Lymph # (Auto) Not Reportable [place] # (Auto) Not Reportable Baso # (Auto) Not Reportable Total Counted 100 Seg Neutrophils % 68.0 (38-70) % Band Neutrophils % 12.0 H (3-7) % Lymphocytes % (Manual) 6.0 L (25-45) % Monocytes % (Manual) 13.0 H (2-11) % Myelocytes % 1.0 H (-0) % Neutrophils # (Manual) 48647 H (7439-4512) /uL RBC Morphology Normal morphology PT 12.2 (9.4-12.5) SECONDS INR 1.1 (0.9-1.3) APTT 33 (25.1-36.5) SECONDS Sodium 132 L (137-145) mmol/L Potassium 4.6 (3.4-5.1) mmol/L Chloride 94 L (98-107) mmol/L Carbon Dioxide 26 (22-32) mmol/L BUN 24 H (9-20) mg/dL Creatinine 1.00 (0.66-1.25) mg/dL Estimated GFR > 60 (>60) mL/min BUN/Creatinine Ratio 24.0 H (6-22) Glucose 127 H (80-110) mg/dL Calcium 10.4 H (8.4-10.2) mg/dL Magnesium 1.5 L (1.6-2.3) mg/dL Total Bilirubin 0.8 (0.2-1.3) mg/dL AST 84 H (17-59) IU/L ALT 32 (<50) IU/L Alkaline Phosphatase 70 (38-126) U/L Total Creatine Kinase 2401 H (55-170) U/L Troponin I 0.017 (0.01-0.034) ng/mL Total Protein 8.4 H (6.3-8.2) g/dL Albumin 4.8 (3.5-5.0) g/dL Globulin 3.6 (1.7-4.1) g/dL Albumin/Globulin Ratio 1.3 (1.0-2.8) Urine Color Urine Appearance Urine pH (4.5-8.0) Ur Specific [place] (1.000-1.035) Urine Protein (Negative) Urine Glucose (UA) (Negative) g/dL Urine Ketones (NEGATIVE) Urine Occult Blood (Negative) Urine Nitrate (Negative) Urine Bilirubin (NEGATIVE) Urine Urobilinogen (0.2) E.U./dL Ur Leukocyte Esterase (NEGATIVE) Urine RBC (0-5/HPF) Urine WBC (0-5/HPF) Ur Squamous Epith Cells (0-5/HPF) Urine Bacteria (None) Hyaline Casts (None) Urine Mucus (Negative) Ur Culture Indicated? Vol Urine Centrifuged Salicylates < 1.0 (<20) mg/dL U Opiates 300ng/mL cut (Negative) Ur Oxycodone Screen (Negative) Urine Methadone Screen (Negative) Acetaminophen < 10 (10-30) ug/mL Ur Barbiturates Screen (Negative) U Tricyclic Antidepress (Negative) Ur Phencyclidine Scrn (Negative) Ur Amphetamines Screen (Negative) U Methamphetamines Scrn (Negative) Ur MDMA Scrn (Ecstasy) (Negative) U Benzodiazepines Scrn (Negative) Urine Cocaine Screen (Negative) U Marijuana (THC) Screen (Negative) Urine Specific [place] (Normal) Ethyl Alcohol < 10 ( - 10) mg/dL Ur Creatinine (Normal) Chlamy pneumoniae PCR Not detected (Not Detect) Adenovirus (PCR) Not detected (Not Detect) B. pertussis DNA (PCR) Not detected (Not Detect) B.parapertussis DNA PCR Not detected (Not Detecte) Coronavirus OC43 (PCR) Not detected (Not Detect) Coronavirus HKU1 (PCR) Not detected (Not Detect) Coronavirus 229E (PCR) Not detected (Not Detect) SARS-CoV-2 (PCR) Not detected (Not Detecte) Coronavirus NL63 (PCR) Not detected (Not Detect) Human Metapneumovir PCR Not detected (Not Detect) Influenza Type A (PCR) Not detected (Not Detect) Influenza Type B (PCR) Not detected (Not Detect) M. pneumoniae (PCR) Not detected (Not Detect) Parainfluenza 1 (PCR) Not detected (Not Detect) Parainfluenza 2 (PCR) Not detected (Not Detect) Parainfluenza 3 (PCR) Not detected (Not Detect) Parainfluenza 4 (PCR) Not detected (Not Detect) RSV (PCR) Not detected (Not Detect) Entero/Rhino (PCR) Not detected (Not Detect) 12/31/23 12/31/23 01/01/24 Range/Units 23:46 23:46 00:29 WBC (4.5-11.0) X10^3/uL RBC (4.5-5.9) X10^6/uL Hgb (13.5-17.5) g/dL Hct (41-53) % MCV (80-100) fL MCH (26-34) PG MCHC (30-36) % RDW (11.6-14.8) % Plt Count (150-400) X10^3/uL Neut % (Auto) Lymph % (Auto) [place] % (Auto) Eos % (Auto) Baso % (Auto) Lymph # (Auto) [place] # (Auto) Baso # (Auto) Total Counted Seg Neutrophils % (38-70) % Band Neutrophils % (3-7) % Lymphocytes % (Manual) (25-45) % Monocytes % (Manual) (2-11) % Myelocytes % (-0) % Neutrophils # (Manual) (5754-9136) /uL RBC Morphology PT (9.4-12.5) SECONDS INR (0.9-1.3) APTT (25.1-36.5) SECONDS Sodium (137-145) mmol/L Potassium (3.4-5.1) mmol/L Chloride (98-107) mmol/L Carbon Dioxide (22-32) mmol/L BUN (9-20) mg/dL Creatinine (0.66-1.25) mg/dL Estimated GFR (>60) mL/min BUN/Creatinine Ratio (6-22) Glucose (80-110) mg/dL Calcium (8.4-10.2) mg/dL Magnesium (1.6-2.3) mg/dL Total Bilirubin (0.2-1.3) mg/dL AST (17-59) IU/L ALT (<50) IU/L Alkaline Phosphatase (38-126) U/L Total Creatine Kinase 2368 H (55-170) U/L Troponin I 0.027 (0.01-0.034) ng/mL Total Protein (6.3-8.2) g/dL Albumin (3.5-5.0) g/dL Globulin (1.7-4.1) g/dL Albumin/Globulin Ratio (1.0-2.8) Urine Color Yellow Urine Appearance Clear Urine pH 5.5 Normal (4.5-8.0) Ur Specific [place] 1.010 (1.000-1.035) Urine Protein Negative (Negative) Urine Glucose (UA) Negative (Negative) g/dL Urine Ketones Negative (NEGATIVE) Urine Occult Blood 2+ H (Negative) Urine Nitrate Negative (Negative) Urine Bilirubin Negative (NEGATIVE) Urine Urobilinogen 0.2 (0.2) E.U./dL Ur Leukocyte Esterase Negative (NEGATIVE) Urine RBC 30-100/hpf H (0-5/HPF) Urine WBC 0-1/hpf (0-5/HPF) Ur Squamous Epith Cells 0-1 /hpf (0-5/HPF) Urine Bacteria Occasional (0-1) (None) Hyaline Casts 10-30/lpf (None) Urine Mucus 1+ H (Negative) Ur Culture Indicated? Cult not indicated Vol Urine Centrifuged 10ml (spun) Salicylates (<20) mg/dL U Opiates 300ng/mL cut Positive H (Negative) Ur Oxycodone Screen Positive H (Negative) Urine Methadone Screen Negative (Negative) Acetaminophen (10-30) ug/mL Ur Barbiturates Screen Negative (Negative) U Tricyclic Antidepress Negative (Negative) Ur Phencyclidine Scrn Negative (Negative) Ur Amphetamines Screen Positive H (Negative) U Methamphetamines Scrn Positive H (Negative) Ur MDMA Scrn (Ecstasy) Negative (Negative) U Benzodiazepines Scrn Negative (Negative) Urine Cocaine Screen Negative (Negative) U Marijuana (THC) Screen Positive H (Negative) Urine Specific [place] Normal (Normal) Ethyl Alcohol ( - 10) mg/dL Ur Creatinine Normal (Normal) Chlamy pneumoniae PCR (Not Detect) Adenovirus (PCR) (Not Detect) B. pertussis DNA (PCR) (Not Detect) B.parapertussis DNA PCR (Not Detecte) Coronavirus OC43 (PCR) (Not Detect) Coronavirus HKU1 (PCR) (Not Detect) Coronavirus 229E (PCR) (Not Detect) SARS-CoV-2 (PCR) (Not Detecte) Coronavirus NL63 (PCR) (Not Detect) Human Metapneumovir PCR (Not Detect) Influenza Type A (PCR) (Not Detect) Influenza Type B (PCR) (Not Detect) M. pneumoniae (PCR) (Not Detect) Parainfluenza 1 (PCR) (Not Detect) Parainfluenza 2 (PCR) (Not Detect) Parainfluenza 3 (PCR) (Not Detect) Parainfluenza 4 (PCR) (Not Detect) RSV (PCR) (Not Detect) Entero/Rhino (PCR) (Not Detect) Point of Care Testing Glucose POC [address] scan - head: Radiologist's Impression: PROCEDURE: CT STROKE INDICATIONS: stroke TECHNIQUE: Noncontrast 4.5 mm thick angled axial sections acquired from the foramen magnum to the vertex, with coronal reformats. For radiation dose reduction, the following was used: automated exposure control, adjustment of mA and/or kV according to patient size. COMPARISON: [facility], CT, CT ANGIO HEAD AND NECK, 12/31/2023, 20:53. [facility], CT, CT HEAD WITHOUT CONTRAST, 11/02/2022, 13:09. FINDINGS: Image quality: Diagnostic. CSF spaces: Basal cisterns are patent. No extra-axial fluid collections. Ventricles are normal in size and shape. Brain: No midline shift. No intracranial masses or hemorrhage. [place]-white matter interface is normal. 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 Skull and face: Calvarium and visualized facial bones are intact, without suspicious lesions. Sinuses: Visualized sinuses and mastoids are clear. IMPRESSION: No acute intracranial pathology. These findings were communicated via telephone to the ordering provider, Dr Soni, by Raz Del Rio MD on 12/31/2023 at 9:14 p.m. This study fulfills neurological imaging criteria for inclusion or exclusion of acute stroke therapies based on available published neurological imaging guidelines. Dictated by: Raz Del Rio M.D. on 12/31/2023 at 21:06 CTA - brain/neck: Radiologist's Impression: PROCEDURE: CT ANGIO HEAD AND NECK INDICATIONS: alt mental, confusion, difficulty finding words TECHNIQUE: After the administration of intravenous contrast, 1 mm thick sections acquired from the aortic arch through the [facility] [place]. 3-dimensional lfgnsff-ykywxomwi-hcncwpitqh (MIP) and/or volume rendering reformats were acquired of the central intracranial vasculature and neck separately. For radiation dose reduction, the following was used: automated exposure control, adjustment of mA and/or kV according to patient size. COMPARISON: [facility], CT, CT STROKE, 12/31/2023, 20:53. FINDINGS: Image quality: Fair; somewhat limited due to motion artifact BRAIN: Please see the same-day CT head without contrast report for further details HEAD CT ANGIOGRAPHY: Anterior circulation: Intracranial internal carotid arteries are normal in size and flow. The flow within the paired anterior cerebral arteries is normal and symmetric. The flow within the middle cerebral arteries is normal and symmetric. The anterior communicating artery is seen. No aneurysms are seen. Posterior circulation: Visualized portions of the vertebral arteries demonstrate normal caliber, and join to form a normal appearing basilar artery. Flow within the posterior cerebral arteries is normal and symmetric. No aneurysms are seen. NECK CT ANGIOGRAPHY: Carotid system: 3 vessel aortic arch comprised of the right brachiocephalic artery, left common carotid, and left subclavian artery. The origins of the common carotid arteries appear patent. The common carotid arteries demonstrate normal caliber and courses. The bifurcation regions are both widely patent. The internal carotid arteries demonstrate normal calibers and courses. Posterior circulation: The origins of the vertebral arteries both appear widely patent. The more superior extracranial portions of both vertebral arteries also demonstrate normal courses and calibers. They join to form a normal appearing basilar artery. Soft tissues: Status post prior right hemithyroidectomy. Enlarged main pulmonary arterial trunk diameter up to 3.2 cm. Severe left anterior descending coronary artery calcifications. Bones: No suspicious bony lesions. Visualized cervical spine appears normally aligned. IMPRESSION: 1. No large vessel occlusion, dissection, or aneurysm in the visualized head and neck vasculature. 2. Enlarged main pulmonary arterial trunk diameter, suggestive of pulmonary arterial hypertension. 3. Severe left anterior descending coronary artery calcification. Any quantitative measurements of stenosis were performed using NASCET criteria. These findings were communicated via telephone to the ordering provider, Dr Soni, by Raz Del Rio MD on 12/31/2023 at 9:14 p.m. Dictated by: Raz Del Rio M.D. on 12/31/2023 at 21:15 Chest x-ray: Radiologist's Impression: PROCEDURE: XR CHEST 1V INDICATIONS: Possible stroke TECHNIQUE: One view of the chest was acquired. COMPARISON: [facility], CR, XR CHEST 1V, 08/25/2019, 22:17. [facility], CR, XR CHEST 1V, 05/23/2019, 6:39. [facility], CR, XR CHEST 1V, 05/01/2019, 14:12. FINDINGS: Surgical changes and devices: Right medial supraclavicular surgical clips. Lungs and pleura: Lungs are clear. No pleural effusions or pneumothorax. Mediastinum: Mediastinal contours appear normal. Heart size is normal. Bones and chest wall: No suspicious bony lesions. Overlying soft tissues appear unremarkable. IMPRESSION: No acute cardiopulmonary abnormality is seen. Dictated by: Raz Del Rio M.D. on 12/31/2023 at 21:19 ECG Data Interpretation: Sinus rhythm rate 90 LA interval 176 QRS 132 QTC 452 Q-waves noted inferior leads no ST changes MDM Narrative Medical decision making narrative: [facility] CC: Altered mental status Complicating co-morbidities: Severe coronary artery disease with stents history of polysubstance abuse Corroborating data: Roommate and sister Medical records reviewed: [facility] record from 03/06/2023 shows that he has coronary artery disease in February 2016 PCI to distal RCA and mid LAD with [employer] Differential considered: CVA intracranial hemorrhage sepsis infection overdose Exam documented above, pertinent findings include: Slurring of speech sleepy pinpoint pupils moving extremities Lab Test results independently reviewed as above. Pertinent findings: WBC 18.5 CPK 2401--> 2368 Urine drug screen opiates oxycodone amphetamine methamphetamine marijuana CMP sodium 132 potassium 4.6 chloride Alcohol Tylenol salicylate negative levels Independently reviewed EKG as above: No ischemia persistent Q-waves in inferior lead Imaging studies independently reviewed: Head CT no intracranial hemorrhage CT angio large vessel occlusion severe left anterior descending coronary artery calcification Chest x-ray negative Consultations: Dr. Phipps, accepts to observation Treatments: Narcan Re-evaluations: Patient woke up and remained responsive after Narcan. Seem to be doing much better ambulated to the restroom he was left alone in the restroom when he came back he went back to sleep and became more difficult to arouse requiring a 2nd dose of Narcan which he quickly responded to. Discussion: 68-year-old male presenting today as a code stroke however due to decreased responsiveness was given Narcan which he quickly responded to. Drug screen positive for methamphetamine and opiates patient initially denied all use but then admitted to some. Sister at bedside reports that he does have a longstanding history of drug abuse. Patient required a 2nd dose of Narcan after he came back from the bathroom unclear if something else was taken in the bathroom or not. He also has very mild rhabdomyolysis with CPK greater than 2000 but is trending downward. Patient lives with a roommate who will unlikely allow him back after this incident. He has a sister at bedside who can not care for him herself. Discussion with patient he would go to detox and rehab. Discharge Plan Departure Patient Disposition: Admitted as Observation Clinical Impression: Opiate overdose, Rhabdomyolysis Admit Date/Time: 01/01/24 02:02 Admit Provider: Willis Phipps
--- NOTE | 2023-12-31 22:42 | PC.NURSE ---
ARCHITECTURE DRAFTER note: Patient wearing swimming trunks as undergarments under his jeans. When attempting to get a urine specimen patient wondered aloud why aren't these boxers working? Changed patient out of his jeans and trunks; patient is attempting to give a urine specimen.
[2023-12-31 23:00] LABS: Adenovirus Not Detected (Not Detect); B. parapertussis Not Detected (Not Detecte); Bordetella pertussis Not Detected (Not Detect); Chlamydophila pneumoniae Not Detected (Not Detect); Coronavirus 229E Not Detected (Not Detect); Coronavirus HKU1 Not Detected (Not Detect); Coronavirus NL 63 Not Detected (Not Detect); Coronavirus OC43 Not Detected (Not Detect); Human Metapneumovirus Not Detected (Not Detect); Human Rhinovirus/Enterovirus Not Detected (Not Detect); Influenza A Not Detected (Not Detect); Influenza B Not Detected (Not Detect); Mycoplasma pneumoniae Not Detected (Not Detect); Parainfluenza Virus 1 Not Detected (Not Detect); Parainfluenza Virus 2 Not Detected (Not Detect); Parainfluenza Virus 3 Not Detected (Not Detect); Parainfluenza Virus 4 Not Detected (Not Detect); Respiratory Syncytial Virus Not Detected (Not Detect); SARS- CoV-2 Not Detected (Not Detecte)
--- NOTE | 2023-12-31 23:40 | PC.NURSE ---
Patient attempted to urinate 3 different times. Patient ambulated to the restroom and attempted there as well, no success.
--- NOTE | 2023-12-31 23:46 | PC.NURSE ---
Straight cath'd patient as per order. 350ml urine out, sent to lab for UA and drug screen.
[2023-12-31 23:59] LABS: Ur Creatinine Normal (Normal); Ur Specific Gravity Normal (Normal)
[2024-01-01] VITALS (12 sets, daily range): BP systolic 114–137; BP diastolic 55–73; PULSE 80–90; RESP 9–24; TEMP 36.6–37.1; O2SAT 93–98; BMI 29.8
[2024-01-01] LABS: Appearance Urine UA CLEAR; Bilirubin Urine UA NEGATIVE (NEGATIVE); Color Urine UA YELLOW; Glucose Urine UA NEGATIVE (Negative); Ketones Urine UA NEGATIVE (NEGATIVE); Leukocyte Esterase Urine UA NEGATIVE (NEGATIVE); Nitrite Urine UA NEGATIVE (Negative); Occult Blood Urine UA 2+ (Negative); Protein Urine UA NEGATIVE (Negative); Urine Tetrahydrocannabinol Positive (Negative); Urine pH Normal (Normal); Urobilinogen Urine UA 0.2 E.U./dL (0.2); pH Urine UA 5.5 (4.5-8.0)
[2024-01-01 00:01] LABS: UR Morphine/Opiate cutoff 300 Positive (Negative); Urine Amphetamines Positive (Negative); Urine Barbiturates Negative (Negative); Urine Benzodiazepines Negative (Negative); Urine Cocaine Negative (Negative); Urine MDMA Negative (Negative); Urine Methadone Negative (Negative); Urine Methamphetamines Positive (Negative); Urine Phencyclidine Negative (Negative)
[2024-01-01 00:02] LABS: Urine Oxycodone Positive (Negative); Urine Tricyclic Antidepressant Negative (Negative)
[2024-01-01 00:06] LABS: Hyaline Casts Urine 10-30/LPF; RBC Urine 30-100/HPF (0-5/HPF); Squamous Epithelial Cell Urine 0-1 /HPF (0-5/HPF); Urine Volume 10mL (spun); WBC Urine 0-1/HPF (0-5/HPF)
[2024-01-01 00:07] LABS: Bacteria Urine Occasional (0-1); Culture Indicated Urine Cult Not Indicated; Mucus Urine 1+ (Negative)
[2024-01-01 00:55] LABS: Creatine Kinase 2368 U/L (55-170)
[2024-01-01 01:01] LABS: Troponin I 0.027 ng/mL (0.01-0.034)
--- NOTE | 2024-01-01 01:07 | PC.NURSE ---
0107: Patient having a hard time being aroused. Respirations shallow [address] Soni in room and ordered 04.mg narcan IV. 0109: 0.4mg narcan administered. 0111: Patient AAOx 3 and talking with his sister in the room.
[2024-01-01] MEDS: NALOXONE 0.4 MG/ML VIAL IV (01:09)
[2024-01-01] MEDS: SODIUM CHLORIDE 0.9% 1,000 ML 100 ML IV (01:37)
[2024-01-01 02:11] LABS: Acetaminophen < 10 ug/mL (10-30); Ethanol (ETOH) < 10 mg/dL; Salicylate < 1.0 mg/dL (<20)
--- NOTE | 2024-01-01 04:50 | P.HP_ITS ---
History of Present Illness History of Present Illness Date Patient Seen: 01/01/24 Time Patient Seen: 04:50 Chief complaint: poss stroke Narrative: The pt came to the ER tonight due to somnulence and a cough. The other people with whom he lives with were concerned about him and call EMS and he was brought to the ER, several doses of Narcan were given with improvement in his cognition. After he awoke, he reported to me and to the ER that he had taken several oxycodones that a friend gave him, he also was positive for meth and THC on urine screen. The pt denies any acute problems other than a dry cough that has been present for the past 3 years, he stopped smoking cigarettes 6 months ago. [facility] Social History household members: friend(s) Smoking Status: Former smoker Meds Home Medications and Allergies Home Medications Medication Instructions Recorded Confirmed Type carvedilol 6.25 mg tablet 18.75 mg PO BID 05/01/19 01/01/24 History cholecalciferol (vitamin D3) 50 2,000 unit PO QPM 05/01/19 01/01/24 History mcg (2,000 unit) tablet gabapentin 100 mg capsule 400 mg PO TID 05/01/19 01/01/24 History isosorbide mononitrate 30 mg 30 mg PO QPM 05/01/19 01/01/24 History tablet,extended release 24 hr levothyroxine 125 mcg tablet 125 mcg PO DAILY 05/01/19 01/01/24 History metformin 500 mg tablet 500 mg PO BID 05/01/19 01/01/24 History nitroglycerin 0.4 mg sublingual 0.4 mg sublingual Q5-15M PRN Chest 05/01/19 01/01/24 History tablet Pain pantoprazole 40 mg tablet,delayed 40 mg PO DAILY 05/01/19 01/01/24 History release vitamin B complex (B-Complex 1 tab PO DAILY 05/01/19 01/01/24 History tablet) Prozac 40 mg PO DAILY depression 01/01/24 01/01/24 History losartan 25 mg tablet 12.5 mg PO DAILY 01/01/24 01/01/24 History pitavastatin calcium 4 mg tablet 4 mg PO DAILY 01/01/24 01/01/24 History (Livalo) Allergies Allergy/AdvReac Type Severity Reaction Status Date / Time gemfibrozil Allergy Verified 01/25/20 11:04 Exam Vital Signs (past 8 hours): - 12/31/23 20:57 12/31/23 20:57 12/31/23 21:00 Temperature Pulse Rate 96 H Respiratory Rate 9 L Blood Pressure 115/59 L 108/52 L Pulse Oximetry Oxygen Delivery Method Oxygen Flow Rate 12/31/23 21:00 12/31/23 21:02 12/31/23 21:28 Temperature Pulse Rate 95 H 94 H Respiratory Rate 12 14 Blood Pressure Pulse Oximetry 88 L 93 98 Oxygen Delivery Method Room Air Oximask Room Air Oxygen Flow Rate 5 12/31/23 21:30 12/31/23 21:30 12/31/23 22:00 Temperature Pulse Rate 91 H 88 Respiratory Rate 11 L 12 Blood Pressure 144/69 H Pulse Oximetry 95 95 Oxygen Delivery Method Room Air Room Air Oxygen Flow Rate 12/31/23 22:00 12/31/23 22:30 12/31/23 23:00 Temperature Pulse Rate 98 H 88 Respiratory Rate 14 13 Blood Pressure 122/63 Pulse Oximetry 93 Oxygen Delivery Method Room Air Oxygen Flow Rate 12/31/23 23:00 12/31/23 23:24 12/31/23 23:24 Temperature Pulse Rate 99 H Respiratory Rate 16 Blood Pressure 138/66 146/70 H Pulse Oximetry 89 L Oxygen Delivery Method Room Air Oxygen Flow Rate 12/31/23 23:25 12/31/23 23:30 12/31/23 23:30 Temperature Pulse Rate 93 H Respiratory Rate 12 Blood Pressure 124/60 Pulse Oximetry 95 98 Oxygen Delivery Method Oximask Oximask Oxygen Flow Rate 2 2 01/01/24 00:00 01/01/24 00:00 01/01/24 00:30 Temperature Pulse Rate 87 88 Respiratory Rate 10 L 11 L Blood Pressure 124/62 Pulse Oximetry 93 95 Oxygen Delivery Method Oximask Oximask Oxygen Flow Rate 2 2 01/01/24 00:30 01/01/24 01:00 01/01/24 01:00 Temperature Pulse Rate 85 Respiratory Rate 9 L Blood Pressure 114/58 L 116/59 L Pulse Oximetry 93 Oxygen Delivery Method Oximask Oxygen Flow Rate 2 01/01/24 01:30 01/01/24 01:30 01/01/24 02:00 Temperature Pulse Rate 89 Respiratory Rate 18 Blood Pressure 130/64 127/66 Pulse Oximetry 98 Oxygen Delivery Method Oximask Oxygen Flow Rate 3 01/01/24 02:00 01/01/24 02:30 01/01/24 02:30 Temperature Pulse Rate 86 90 Respiratory Rate 24 18 Blood Pressure 114/55 L Pulse Oximetry 94 95 Oxygen Delivery Method Oximask Oximask Oxygen Flow Rate 3 3 01/01/24 02:34 01/01/24 03:00 01/01/24 03:00 Temperature Pulse Rate 83 Respiratory Rate 12 Blood Pressure 126/66 Pulse Oximetry 95 Oxygen Delivery Method Nasal Cannula Oximask Oxygen Flow Rate 3 01/01/24 03:34 Temperature 98.4 F Pulse Rate 87 Respiratory Rate 12 Blood Pressure 137/73 Pulse Oximetry 95 Oxygen Delivery Method Oxygen Flow Rate 0 Oxygen Delivery Method Oximask Oxygen Flow Rate 0 Const General: cooperative and disheveled Resp Auscultation: clear to auscultation bilaterally Cardio Rate: regular rate Rhythm: regular rhythm Neuro Cognition: normal cognition Speech: speech normal Other: mild lip drooping, which is from an old stroke Objective Labs 12/31/23 20:47 12/31/23 20:42 Labs: Laboratory Results - last 24 hr 12/31/23 12/31/23 12/31/23 20:42 20:47 22:04 WBC 18.5 H RBC 4.53 Hgb 13.3 L Hct 38.9 L MCV 85.8 MCH 29.3 MCHC 34.2 RDW 13.2 Plt Count 328 Neut % (Auto) Not Reportable Lymph % (Auto) Not Reportable [place] % (Auto) Not Reportable Eos % (Auto) Not Reportable Baso % (Auto) Not Reportable Lymph # (Auto) Not Reportable [place] # (Auto) Not Reportable Baso # (Auto) Not Reportable Total Counted 100 Seg Neutrophils % 68.0 Band Neutrophils % 12.0 H Lymphocytes % (Manual) 6.0 L Monocytes % (Manual) 13.0 H Myelocytes % 1.0 H Neutrophils # (Manual) 19301 H RBC Morphology Normal morphology PT 12.2 INR 1.1 APTT 33 Sodium 132 L Potassium 4.6 Chloride 94 L Carbon Dioxide 26 BUN 24 H Creatinine 1.00 Estimated GFR > 60 BUN/Creatinine Ratio 24.0 H Glucose 127 H Calcium 10.4 H Magnesium 1.5 L Total Bilirubin 0.8 AST 84 H ALT 32 Alkaline Phosphatase 70 Total Creatine Kinase 2401 H Troponin I 0.017 Total Protein 8.4 H Albumin 4.8 Globulin 3.6 Albumin/Globulin Ratio 1.3 Urine Color Urine Appearance Urine pH Ur Specific [place] Urine Protein Urine Glucose (UA) Urine Ketones Urine Occult Blood Urine Nitrate Urine Bilirubin Urine Urobilinogen Ur Leukocyte Esterase Urine RBC Urine WBC Ur Squamous Epith Cells Urine Bacteria Hyaline Casts Urine Mucus Ur Culture Indicated? Vol Urine Centrifuged Salicylates < 1.0 U Opiates 300ng/mL cut Ur Oxycodone Screen Urine Methadone Screen Acetaminophen < 10 Ur Barbiturates Screen U Tricyclic Antidepress Ur Phencyclidine Scrn Ur Amphetamines Screen U Methamphetamines Scrn Ur MDMA Scrn (Ecstasy) U Benzodiazepines Scrn Urine Cocaine Screen U Marijuana (THC) Screen Urine Specific [place] Ethyl Alcohol < 10 Ur Creatinine Chlamy pneumoniae PCR Not detected Adenovirus (PCR) Not detected B. pertussis DNA (PCR) Not detected B.parapertussis DNA PCR Not detected Coronavirus OC43 (PCR) Not detected Coronavirus HKU1 (PCR) Not detected Coronavirus 229E (PCR) Not detected SARS-CoV-2 (PCR) Not detected Coronavirus NL63 (PCR) Not detected Human Metapneumovir PCR Not detected Influenza Type A (PCR) Not detected Influenza Type B (PCR) Not detected M. pneumoniae (PCR) Not detected Parainfluenza 1 (PCR) Not detected Parainfluenza 2 (PCR) Not detected Parainfluenza 3 (PCR) Not detected Parainfluenza 4 (PCR) Not detected RSV (PCR) Not detected Entero/Rhino (PCR) Not detected 12/31/23 12/31/23 01/01/24 23:46 23:46 00:29 WBC RBC Hgb Hct MCV MCH MCHC RDW Plt Count Neut % (Auto) Lymph % (Auto) [place] % (Auto) Eos % (Auto) Baso % (Auto) Lymph # (Auto) [place] # (Auto) Baso # (Auto) Total Counted Seg Neutrophils % Band Neutrophils % Lymphocytes % (Manual) Monocytes % (Manual) Myelocytes % Neutrophils # (Manual) RBC Morphology PT INR APTT Sodium Potassium Chloride Carbon Dioxide BUN Creatinine Estimated GFR BUN/Creatinine Ratio Glucose Calcium Magnesium Total Bilirubin AST ALT Alkaline Phosphatase Total Creatine Kinase 2368 H Troponin I 0.027 Total Protein Albumin Globulin Albumin/Globulin Ratio Urine Color Yellow Urine Appearance Clear Urine pH 5.5 Normal Ur Specific [place] 1.010 Urine Protein Negative Urine Glucose (UA) Negative Urine Ketones Negative Urine Occult Blood 2+ H Urine Nitrate Negative Urine Bilirubin Negative Urine Urobilinogen 0.2 Ur Leukocyte Esterase Negative Urine RBC 30-100/hpf H Urine WBC 0-1/hpf Ur Squamous Epith Cells 0-1 /hpf Urine Bacteria Occasional (0-1) Hyaline Casts 10-30/lpf Urine Mucus 1+ H Ur Culture Indicated? Cult not indicated Vol Urine Centrifuged 10ml (spun) Salicylates U Opiates 300ng/mL cut Positive H Ur Oxycodone Screen Positive H Urine Methadone Screen Negative Acetaminophen Ur Barbiturates Screen Negative U Tricyclic Antidepress Negative Ur Phencyclidine Scrn Negative Ur Amphetamines Screen Positive H U Methamphetamines Scrn Positive H Ur MDMA Scrn (Ecstasy) Negative U Benzodiazepines Scrn Negative Urine Cocaine Screen Negative U Marijuana (THC) Screen Positive H Urine Specific [place] Normal Ethyl Alcohol Ur Creatinine Normal Chlamy pneumoniae PCR Adenovirus (PCR) B. pertussis DNA (PCR) B.parapertussis DNA PCR Coronavirus OC43 (PCR) Coronavirus HKU1 (PCR) Coronavirus 229E (PCR) SARS-CoV-2 (PCR) Coronavirus NL63 (PCR) Human Metapneumovir PCR Influenza Type A (PCR) Influenza Type B (PCR) M. pneumoniae (PCR) Parainfluenza 1 (PCR) Parainfluenza 2 (PCR) Parainfluenza 3 (PCR) Parainfluenza 4 (PCR) RSV (PCR) Entero/Rhino (PCR) Assessment & Plan Assessment & Plan narrative: 1. toxic encephalopathy- I have discussed the pt's presenting symptoms and labs with the ER provider and agree with the decision for admission. Will have narcan available if needed, close monitoring, I have reviewed the labs personally, with WBC of 18, CPK of 2368, I have also reviewed the CXr myself showing no infiltrate, holding all narcotics at this time. 2. rhabdomyalsis- IV fluids ordered, rechecking levels this morning, 2. unintentional opiate overdose 3. Leukocytosis- UA clear , CXR without acute infiltrates, afebrile, repeating CBC now Time-Based Coding :: [TOTAL MINUTES] spent with patient and on the chart (including review of chart, obtaining history, exam, reviewing outside data, placing orders, documenting exam and treatment plan, and counseling patient) on [DATE]. Quality VTE Deep Vein Thrombosis/Pulmonary Embolism Present on Admission: No
[2024-01-01 07:03] LABS: Add Manual Diff / Slide Review NO; Basophils Absolute Auto 100 /uL (0-100); Basophils Percent Auto 0.5 % (0-2); Eosinophils Absolute Auto 0 /uL (0-450); Eosinophils Percent Auto 0.1 % (2-4); Hematocrit 32.6 % (41-53); Hemoglobin 11.3 g/dL (13.5-17.5); Lymphocytes Absolute Auto 1100 /uL (1100-4500); Lymphocytes Percent Auto 6.3 % (25-40); Mean Corpuscular HGB Conc 34.6 % (30-36); Mean Corpuscular Hemoglobin 29.7 PG (26-34); Mean Corpuscular Volume 85.7 fL (80-100); Monocytes Absolute Auto 2000 /uL (0-900); Monocytes Percent Auto 11.1 % (3-14); Neutrophils Absolute Auto 14600 /uL (1500-7000); Platelet Count 247 X10^3/uL (150-400); Red Cell Distribution Width 13.2 % (11.6-14.8); White Blood Cell Count 17.8 X10^3/uL (4.5-11.0)
[2024-01-01 07:16] LABS: Alanine Aminotransferase 31 IU/L (<50); Albumin 3.8 g/dL (3.5-5.0); Albumin Globulin Ratio 1.5 (1.0-2.8); Alkaline Phosphatase 51 U/L (38-126); Aspartate Aminotransferase 95 IU/L (17-59); BUN Creatinine Ratio 23.1 (6-22); Bilirubin Total 0.6 mg/dL (0.2-1.3); Blood Urea Nitrogen 18 mg/dL (9-20); Calcium 9.4 mg/dL (8.4-10.2); Carbon Dioxide 28 mmol/L (22-32); Chloride 96 mmol/L (98-107); Estimated Glomerular Filt Rate > 60 mL/min (>60); Globulin 2.6 g/dL (1.7-4.1); Glucose 118 mg/dL (80-110); HEMOLYSIS 16 (0-50); Potassium 4.6 mmol/L (3.4-5.1); Sodium 129 mmol/L (137-145); Total Protein 6.4 g/dL (6.3-8.2)
[2024-01-01 07:23] LABS: Creatine Kinase 2427 U/L (55-170)
[2024-01-01] MEDS: ENOXAPARIN 40 MG/0.4 ML SYRINGE SUBCUT (09:19)
[2024-01-01] MEDS: GABAPENTIN 400 MG CAPSULE PO (10:21)
--- NOTE | 2024-01-01 11:08 | PM.DS.1 ---
History of Present Illness History of Present Illness Date Patient Seen: 01/01/24 Time Patient Seen: 10:55 Chief complaint: poss stroke Narrative: Per admitting provider, The pt came to the ER tonight due to somnulence and a cough. The other people with whom he lives with were concerned about him and call EMS and he was brought to the ER, several doses of Narcan were given with improvement in his cognition. After he awoke, he reported to me and to the ER that he had taken several oxycodones that a friend gave him, he also was positive for meth and THC on urine screen. The pt denies any acute problems other than a dry cough that has been present for the past 3 years, he stopped smoking cigarettes 6 months ago. Discharge Providers Provider Date of admission: 01/01/24 02:02 Discharge Date: 01/01/24 Primary care physician: Hafsa Ramsey MD Discharge provider: Francisco Byers DO Summary Hospital Course Discharge Diagnosis: 1. toxic encephalopathy and acute respiratory failure with hypoxia secondary to #3. 2. rhabdomyalsis 3. unintentional opiate overdose Hospital Course: This is a 68 year old male admitted with chronic pain, admitted with hypoxic respiratory failure after unintentional opiate overdose. He was given narcan in the ER with improvement. CK was elevated, with normal Cr. CK level was stable on repeat studies, and patient was adequately tolerating oral intake. He had no ongoing hypoxia. He was sent a prescription for narcan and educated on opiates and respiratory depression. No other changes to his home medications were recommended on discharge. Time Spent with Patient Time spent: Greater than 30 minutes Exam Vital Signs (past 8 hours): - 01/01/24 03:34 01/01/24 04:45 01/01/24 08:00 Temperature 98.4 F 98.7 F Pulse Rate 87 85 Respiratory Rate 12 18 Blood Pressure 137/73 126/63 Pulse Oximetry 95 95 94 Oxygen Delivery Method Simple Mask Oxygen Flow Rate 3 3 0 01/01/24 08:45 Temperature Pulse Rate Respiratory Rate Blood Pressure Pulse Oximetry 97 Oxygen Delivery Method Room Air Oxygen Flow Rate 0 Oxygen Delivery Method Room Air Oxygen Flow Rate 0 Const General: cooperative and disheveled Resp Auscultation: clear to auscultation bilaterally Cardio Rate: regular rate Rhythm: regular rhythm Neuro Cognition: normal cognition Speech: speech normal Other: mild lip drooping, which is from an old stroke Objective Labs 01/01/24 06:40 01/01/24 06:40 Labs: Laboratory Results - last 24 hr 12/31/23 12/31/23 12/31/23 20:42 20:47 22:04 WBC 18.5 H RBC 4.53 Hgb 13.3 L Hct 38.9 L MCV 85.8 MCH 29.3 MCHC 34.2 RDW 13.2 Plt Count 328 Neut % (Auto) Not Reportable Lymph % (Auto) Not Reportable [place] % (Auto) Not Reportable Eos % (Auto) Not Reportable Baso % (Auto) Not Reportable Neut # (Auto) Lymph # (Auto) Not Reportable [place] # (Auto) Not Reportable Eos # (Auto) Baso # (Auto) Not Reportable Total Counted 100 Seg Neutrophils % 68.0 Band Neutrophils % 12.0 H Lymphocytes % (Manual) 6.0 L Monocytes % (Manual) 13.0 H Myelocytes % 1.0 H Neutrophils # (Manual) 30286 H RBC Morphology Normal morphology PT 12.2 INR 1.1 APTT 33 Sodium 132 L Potassium 4.6 Chloride 94 L Carbon Dioxide 26 BUN 24 H Creatinine 1.00 Estimated GFR > 60 BUN/Creatinine Ratio 24.0 H Glucose 127 H Calcium 10.4 H Magnesium 1.5 L Total Bilirubin 0.8 AST 84 H ALT 32 Alkaline Phosphatase 70 Total Creatine Kinase 2401 H Troponin I 0.017 Total Protein 8.4 H Albumin 4.8 Globulin 3.6 Albumin/Globulin Ratio 1.3 Urine Color Urine Appearance Urine pH Ur Specific [place] Urine Protein Urine Glucose (UA) Urine Ketones Urine Occult Blood Urine Nitrate Urine Bilirubin Urine Urobilinogen Ur Leukocyte Esterase Urine RBC Urine WBC Ur Squamous Epith Cells Urine Bacteria Hyaline Casts Urine Mucus Ur Culture Indicated? Vol Urine Centrifuged Salicylates < 1.0 U Opiates 300ng/mL cut Ur Oxycodone Screen Urine Methadone Screen Acetaminophen < 10 Ur Barbiturates Screen U Tricyclic Antidepress Ur Phencyclidine Scrn Ur Amphetamines Screen U Methamphetamines Scrn Ur MDMA Scrn (Ecstasy) U Benzodiazepines Scrn Urine Cocaine Screen U Marijuana (THC) Screen Urine Specific [place] Ethyl Alcohol < 10 Ur Creatinine Chlamy pneumoniae PCR Not detected Adenovirus (PCR) Not detected B. pertussis DNA (PCR) Not detected B.parapertussis DNA PCR Not detected Coronavirus OC43 (PCR) Not detected Coronavirus HKU1 (PCR) Not detected Coronavirus 229E (PCR) Not detected SARS-CoV-2 (PCR) Not detected Coronavirus NL63 (PCR) Not detected Human Metapneumovir PCR Not detected Influenza Type A (PCR) Not detected Influenza Type B (PCR) Not detected M. pneumoniae (PCR) Not detected Parainfluenza 1 (PCR) Not detected Parainfluenza 2 (PCR) Not detected Parainfluenza 3 (PCR) Not detected Parainfluenza 4 (PCR) Not detected RSV (PCR) Not detected Entero/Rhino (PCR) Not detected 12/31/23 12/31/23 01/01/24 23:46 23:46 00:29 WBC RBC Hgb Hct MCV MCH MCHC RDW Plt Count Neut % (Auto) Lymph % (Auto) [place] % (Auto) Eos % (Auto) Baso % (Auto) Neut # (Auto) Lymph # (Auto) [place] # (Auto) Eos # (Auto) Baso # (Auto) Total Counted Seg Neutrophils % Band Neutrophils % Lymphocytes % (Manual) Monocytes % (Manual) Myelocytes % Neutrophils # (Manual) RBC Morphology PT INR APTT Sodium Potassium Chloride Carbon Dioxide BUN Creatinine Estimated GFR BUN/Creatinine Ratio Glucose Calcium Magnesium Total Bilirubin AST ALT Alkaline Phosphatase Total Creatine Kinase 2368 H Troponin I 0.027 Total Protein Albumin Globulin Albumin/Globulin Ratio Urine Color Yellow Urine Appearance Clear Urine pH 5.5 Normal Ur Specific [place] 1.010 Urine Protein Negative Urine Glucose (UA) Negative Urine Ketones Negative Urine Occult Blood 2+ H Urine Nitrate Negative Urine Bilirubin Negative Urine Urobilinogen 0.2 Ur Leukocyte Esterase Negative Urine RBC 30-100/hpf H Urine WBC 0-1/hpf Ur Squamous Epith Cells 0-1 /hpf Urine Bacteria Occasional (0-1) Hyaline Casts 10-30/lpf Urine Mucus 1+ H Ur Culture Indicated? Cult not indicated Vol Urine Centrifuged 10ml (spun) Salicylates U Opiates 300ng/mL cut Positive H Ur Oxycodone Screen Positive H Urine Methadone Screen Negative Acetaminophen Ur Barbiturates Screen Negative U Tricyclic Antidepress Negative Ur Phencyclidine Scrn Negative Ur Amphetamines Screen Positive H U Methamphetamines Scrn Positive H Ur MDMA Scrn (Ecstasy) Negative U Benzodiazepines Scrn Negative Urine Cocaine Screen Negative U Marijuana (THC) Screen Positive H Urine Specific [place] Normal Ethyl Alcohol Ur Creatinine Normal Chlamy pneumoniae PCR Adenovirus (PCR) B. pertussis DNA (PCR) B.parapertussis DNA PCR Coronavirus OC43 (PCR) Coronavirus HKU1 (PCR) Coronavirus 229E (PCR) SARS-CoV-2 (PCR) Coronavirus NL63 (PCR) Human Metapneumovir PCR Influenza Type A (PCR) Influenza Type B (PCR) M. pneumoniae (PCR) Parainfluenza 1 (PCR) Parainfluenza 2 (PCR) Parainfluenza 3 (PCR) Parainfluenza 4 (PCR) RSV (PCR) Entero/Rhino (PCR) 01/01/24 06:40 WBC 17.8 H RBC 3.80 L Hgb 11.3 L Hct 32.6 L MCV 85.7 MCH 29.7 MCHC 34.6 RDW 13.2 Plt Count 247 Neut % (Auto) 82.0 H Lymph % (Auto) 6.3 L [place] % (Auto) 11.1 Eos % (Auto) 0.1 L Baso % (Auto) 0.5 Neut # (Auto) 25838 H Lymph # (Auto) 1100 [place] # (Auto) 2000 H Eos # (Auto) 0 Baso # (Auto) 100 Total Counted Seg Neutrophils % Band Neutrophils % Lymphocytes % (Manual) Monocytes % (Manual) Myelocytes % Neutrophils # (Manual) RBC Morphology PT INR APTT Sodium 129 L Potassium 4.6 Chloride 96 L Carbon Dioxide 28 BUN 18 Creatinine 0.78 Estimated GFR > 60 BUN/Creatinine Ratio 23.1 H Glucose 118 H Calcium 9.4 Magnesium Total Bilirubin 0.6 AST 95 H ALT 31 Alkaline Phosphatase 51 Total Creatine Kinase 2427 H Troponin I Total Protein 6.4 Albumin 3.8 Globulin 2.6 Albumin/Globulin Ratio 1.5 Urine Color Urine Appearance Urine pH Ur Specific [place] Urine Protein Urine Glucose (UA) Urine Ketones Urine Occult Blood Urine Nitrate Urine Bilirubin Urine Urobilinogen Ur Leukocyte Esterase Urine RBC Urine WBC Ur Squamous Epith Cells Urine Bacteria Hyaline Casts Urine Mucus Ur Culture Indicated? Vol Urine Centrifuged Salicylates U Opiates 300ng/mL cut Ur Oxycodone Screen Urine Methadone Screen Acetaminophen Ur Barbiturates Screen U Tricyclic Antidepress Ur Phencyclidine Scrn Ur Amphetamines Screen U Methamphetamines Scrn Ur MDMA Scrn (Ecstasy) U Benzodiazepines Scrn Urine Cocaine Screen U Marijuana (THC) Screen Urine Specific [place] Ethyl Alcohol Ur Creatinine Chlamy pneumoniae PCR Adenovirus (PCR) B. pertussis DNA (PCR) B.parapertussis DNA PCR Coronavirus OC43 (PCR) Coronavirus HKU1 (PCR) Coronavirus 229E (PCR) SARS-CoV-2 (PCR) Coronavirus NL63 (PCR) Human Metapneumovir PCR Influenza Type A (PCR) Influenza Type B (PCR) M. pneumoniae (PCR) Parainfluenza 1 (PCR) Parainfluenza 2 (PCR) Parainfluenza 3 (PCR) Parainfluenza 4 (PCR) RSV (PCR) Entero/Rhino (PCR) PFSH Social History household members: friend(s) Smoking Status: Former smoker Discharge Plan Discharge Plan Patient Disposition: Home Provider Discharge Comment: You were admitted to the hospital with opiate overdose requiring medications to reverse this. Also mild rhabdomyolysis. Continue aggressive fluid intake at home for the next couple of days. Discharge orders & Medications Prescriptions: New naloxone [Narcan] 4 mg/actuation spray,non-aerosol 4 mg intranasal Q3M PRN (Reason: opioid overdose) 30 Days Qty: 2 0RF Rx Instructions: spray 1 dose into ONE nostril; alternate nostrils w each dose until help arrives Continued metformin 500 mg Tablet 500 mg PO BID Rx Instructions: w/ meals carvedilol 6.25 mg Tablet 18.75 mg PO BID isosorbide mononitrate 30 mg Tablet Extended Release 24 Hr 30 mg PO QPM pantoprazole 40 mg Tablet,Delayed Release (Dr/Ec) 40 mg PO DAILY levothyroxine 125 mcg Tablet 125 mcg PO DAILY nitroglycerin 0.4 mg Tablet, Sublingual 0.4 mg SUBLINGUAL Q5-15M PRN (Reason: Chest Pain) vitamin B complex [B-Complex] Tablet 1 tab PO DAILY cholecalciferol (vitamin D3) 2,000 unit Tablet 2,000 unit PO QPM Prozac 40 mg PO DAILY pitavastatin calcium [Livalo] 4 mg tablet 4 mg PO DAILY losartan 25 mg tablet 12.5 mg PO DAILY aspirin 81 mg Tablet,Chewable 81 mg PO DAILY No Action gabapentin 400 mg capsule 400 mg PO 3XD Follow up/Referrals: Hafsa Ramsey MD [Primary Care Provider] - Diet/Activity/Treatments Diet: Diet as Tolerated and Regular Activity: As tolerated, no restrictions. Visit Report/Discharge Packet Stand Alone Forms: Patient Portal/API, Stroke Signs & Symptoms Discharge Data Primary Care Provider: Hafsa Ramsey Attending Provider: Willis Phipps Admit Date/Time: 01/01/24 02:02 Quality VTE Deep Vein Thrombosis/Pulmonary Embolism Present on Admission: No
[2024-01-01] MEDS: ACETAMINOPHEN 325 MG TABLET 650 MG PO (11:53)
--- NOTE | 2024-01-01 12:42 | CM.DANOTE ---
Initial DCP Assessment Note Pt is a 68 yo male, resident of [place], arrives with roommate who reports patient had stroke like sx. Patient admitted for suspected unintentional opiate OD. Patient's tox + for Opiates, oxy, meth and amphetamines and THC. PCP: Hafsa Ramsey Payer: [employer]LEY Reviewed chart, pt discussed in multidisciplinary rounds this morning. Patient is not on O2 and will likely discharge today. Met w/patient; patient tearful this visit. 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 Patient currently lives with roommate. Patient reports he is indp in all ADLs, no DME, drives occasionally, reports he has chronic pain that limits his mobility and endurance. Discussed meth use; patient reports he uses meth daily to help me stay awake. Patient takes gabapentin for chronic pain which he reports makes him sleep all day. Patient reports he recently over did activity around his home and ended up buying Oxycodone from a friend that was lined with fentanyl. Suggested to patient that he discuss his medications, including current dosing of gabapentin and prozac with his primary care provider. Patient reports whenever he mentions pain management to his provider he does not get any help. Encouraged patient to apply for medicaid to see if he would qualify for [facility] in home care. Patient said he would consider. Checked in with RN who reports patient has been tearful all morning. Plan: Discharge home via friend or family is anticipated. Patient may benefit from HH RN for med review once home. Will plan to provide Medicaid Certified Phlebotomy Technician Care application and discuss HH services; if patient is homebound. LESLEY Mcgraw Discharge Planning/Care Management CM Discharge Assessment Start: 01/01/24 12:31 Freq: Status: Active Protocol: Document 01/01/24 12:32 JOON (Rec: 01/01/24 12:42 JOON [id number]) Discharge Planning Assessment Assigned Twill Cutter LESLEY Augustin DPOA/Assigned Designee Name sister Saleh Contact Information [phone] Advance Directives? No History Provided By Patient,Medical Record Prior Living Arrangements Apartment/Condo Household Members friend(s) Type of transportation used prior to Drives own vehicle admit Comment Patient reports he occasionally drives but often does not feel up to it due to pain and weakness. Independent with ADL's Yes Is patient alert and oriented? Yes Needs Assistance With Meal Prep,Managing Medications ,Home Chores / Shopping Patient/Family Preference Home with Home Health Barriers to Discharge No Discharge Plan Home with Home Health Transportation Arrangement Friend Additional Comment Patient may benefit from HH RN to complete a med review once home.
--- NOTE | 2024-01-01 14:36 | PC.NURSE ---
Patient teaching done with patient at bedside. Patient understands teaching. Bilat. IV's removed and wrapped w/ self adhesive bandage. Patient in stable condition, VSS, escorted to ride via wheelchair by staff members. Belonging in bag and in hand.
== END 2024-01-01 14:30 | disposition home or self-care (01) ==
LOC: ED 01-01 02:02 → AC 01-01 02:03
PROVIDERS: Admitting Provider Internal Medicine; Emergency Provider Emergency Medicine; PCP Internal Medicine; Referring Provider Emergency Medicine; Visit Provider Internal Medicine
DX: T40.2X1A Poisoning by other opioids, accidental (unintentional), initial encounter (principal); G92.8 Other toxic encephalopathy; J96.01 Acute respiratory failure with hypoxia; Y92.009 Unspecified place in unspecified non-institutional (private) residence as the place of occurrence of the external cause; M62.82 Rhabdomyolysis; R82.5 Elevated urine levels of drugs, medicaments and biological substances; R29.701 NIHSS score 1; Z11.52 Encounter for screening for COVID-19
CPT/HCPCS: 36415; 51701; 70450; 70496; 70498; 71045; 80053; 80305; 80320; 80329; 81001; 82550; 82962; 83735; 84484; 85007; 85025; 85610; 85730; 87633; 93005; 96361; 96372; 96374; 96376; 99285; G0378; G0480; J1650; J2310; Q9967